=== PATIENT | female | born 1965 | race Two or more races ===

== ENCOUNTER 2019-09-28 11:03 | Emergency (ER) | payer MEDICAID, OTHER ==
[~2019-09-28] VITALS: Ht 157.5 cm; Wt 61.2 kg
[2019-09-28 12:21] VITALS: BP 140/81
== END 2019-09-28 13:13 | disposition home or self-care (01) ==
LOC: ER 11:03
DX: R07.81 Pleurodynia (principal); E11.9 Type 2 diabetes mellitus without complications; E78.5 Hyperlipidemia, unspecified; I10 Essential (primary) hypertension
CPT/HCPCS: 71101

== ENCOUNTER 2024-01-12 17:38 | Emergency (ER) | payer MEDICAID ==
[~2024-01-12] VITALS: Ht 154.9 cm; Wt 54.4 kg
[2024-01-12 18:32] LABS: Urine Bacteria None Seen /hpf (None Seen)
[2024-01-12 18:44] LABS: Urine Blood Negative /uL (Negative); Urine Clarity Clear (Clear); Urine Color Light-Yellow (Yellow); Urine Protein, UAD Negative (Negative); Urine Urobilinogen 2 mg/dL (Negative); Urine WBC 9 /hpf (0 - 5); Urine pH 5.5 (5.0-9.0)
[2024-01-12 18:50] VITALS: BP 102/62; PULSE 105; RESP 18; TEMP 97.2; O2SAT 97
[2024-01-12] MEDS ORDERED: CIPR500T4 PO (19:39)
[2024-01-12] MEDS: cefTRIAXone SOD 1,000 MG VL IM ONE (19:45)
[2024-01-12] MEDS: KETOROLAC TROMETH 60MG/2ML VIAL IM ONE (19:46)
[2024-01-12] MEDS: LIDOCAINE HCL (LOCAL ANESTH.) 0.5 % 50ML MDV IJ ONE (19:51)
== END 2024-01-12 20:17 | disposition home or self-care (01) ==
LOC: ER 17:38
DX: N39.0 Urinary tract infection, site not specified (principal); E11.9 Type 2 diabetes mellitus without complications; I10 Essential (primary) hypertension
CPT/HCPCS: 81001; 82962; 87086; 96372; 99284; J0696; J1885

== ENCOUNTER 2024-05-25 18:58 | Emergency (ER) | payer MEDICAID ==
[~2024-05-25] VITALS: Ht 157.5 cm; Wt 57.3 kg
[~2024-05-25 18:58] MED LIST: CIPR500T4 PO
--- NOTE | 2024-05-25 19:38 | ED.PDOC ---
General HPI Comments HPI: Poor Historian. 58 y.o female presents to the ED for a chief complaint of abdominal pain associated with urinary frequency that started yesterday. Patient reports pain is non radiating, describes as a burning sensation and is constant. Patient reports recent UTI diagnose about one week ago, was placed on Macrobid and is currently taking medication. Patient reports going to [facility] 2[facility]3 days ago for similar abdominal pain and nausea and was told to continue Macrobid and was prescribed Pyridium medication. Patient states having three pills left on her Macrobid. Patient denies any other symptoms or pain at this time. Reoccurring UTI's with similar abdominal pain in the past. She denies any nausea, vomiting, diarrhea, hematuria, fever or chills today. VITALS: Temp: 98.3 F BP: 101/63 HR: 98 RR: 18 SPO2: 96% RA Past medical history: HTN, DM, hyperlipidemia, chronic back pain with multiple freactures overtime- follows up with pain management and receives Tylenol codeine 3 alongside physical therapy Past surgical history: Right Nephrectomy REVIEW OF SYSTEMS: CONSTITUTIONAL: Denies acute: fever, diaphoresis, chills, generalized weakness. HEAD: Denies acute: headache, photophobia Eyes: Denies acute: Double vision, vision loss, eye pain, eye discharge. EARS: Denies acute: tinnitus, hearing loss, ear discharge, ear pain, THROAT: Denies acute: sore throat, swelling, difficulty swallowing , pain with swallowing, change in voice. NECK: Denies acute: neck pain, neck swelling, stiff neck. HEART: Denies acute : chest pain, palpitations, LUNGS: Denies acute: SOB, wheezing, cough, hemoptysis ABDOMEN: Denies acute: Vomiting, diarrhea, melena , hematemesis, hematochezia SKIN: Denies acute: rash, redness, lesions, itchiness. EXTREMITIES: Denies acute: calf pain, numbness, tingling, weakness, denies pain in extremity. Denies acute: Low back pain. Neuro: Denies acute: focal neurological deficit, motor or sensory focal neurological deficit, tremors, seizure like activity, confusion, dizziness, change in mental status, loss of bowel or bladder function, cauda equina like symptoms. : Denies acute: dysuria, hematuria, flank pain, PSYCH: Denies acute: hallucination, suicidal ideation, homicidal ideation. FEMALE: Denies acute: abnormal vaginal bleeding, foul odor, unusual discharge. PHYSICAL EXAM: General: no acute distress, awake and alert. Head: normocephalic, atraumatic. Neck: supple, trachea is midline, no swelling. Throat: Normal phonation. Eyes:, no erythema, no purulent discharge, no proptosis, no icterus. Heart: regular rate, regular rhythm, no significant murmur appreciated. Lungs: no apparent respiratory distress, Able to speak in full sentences. No wheezing, no rhonchi, no crackles. No stridors Clear to auscultation bilaterally. Abdomen: non tender to palpation, non distended, soft, no guarding, no rebound, + bowel sounds. Neuro: Awake, Alert, oriented to name, self, situation, follows commands GCS=15. Speech is normal. Skin: no petechia, no purpura, no cyanosis, non-pale, not jaundice. Lower extremities: --no - Pitting edema no deformity, no focal swelling, no calf TTP. Makes eye contact. moves all four extremities. Face: no apparent facial droop. Ambulating in the ED independently. ED COURSE: Time Seen by MD: 19:30 Primary Care Provider: LEONIDES Rios notes: Nurses Notes, Allergies Allergies: Coded Allergies: Ciprofloxacin (Verified Allergy, Unknown, 05/25/24) Uncoded Allergies: NOVACAINE (Allergy, Severe, 09/28/19) Home Meds Active Scripts Cephalexin Monohydrate (Cephalexin) 500 Mg Cap, 500 MG PO Q6HR for 7 Days, #28 CAP Prov:MARI CARMONA DO 05/25/24 Ciprofloxacin Hcl (Ciprofloxacin Hcl) 500 Mg Tab, 1 TAB PO BID for 7 Days, #14 TAB Prov:SARI HOWARD 01/12/24 Information Source: Patient Mode of Arrival: Ambulatory Past Medical History PAST MEDICAL HISTORY: DM, High Lipids, HTN, UTI'S Past Medical History (Other): chronic back pain Surgical History (Other): nephrectomy right side MAINTENANCE SUPERVISOR History: No Pertinent MAINTENANCE SUPERVISOR History Family History Family History: Reviewed,noncontributory to illness Social History Smoker: Non-Smoker Alcohol: Denies ETOH Use Drugs: Denies Drug Use Lives In: Home Was a procedure done? Was a procedure done?: No Differential Diagnosis Kidney stone (Female): Musculoskeletal pain, Pancreatitis, Pyelonephritis, Renal failure, Strain, N/A Urinary Problem (Female): Pyelonephritis, UTI, Other (DDX include Diverticulitis, colitis, gastroenteritis, acute abdomen, SBO, enteritis, constipation, volvulus, appendicitis, Gallbladder disease, choledocolithiasis, ascending cholangitis, pancreatitis, intraAbdominal mass/neoplasm, hepatitis, UTI, pylonephritis, kidney stone, aneurysm, dissection, Inflammatory bowel disease, gastroparesis, ischemic bowel, ovarian torsion, ovarian cyst/mass, tubo-ovarian abscess, PID, STD.) X-Ray, Labs, Meds, VS Vital Signs Date Time Temp Pulse Resp B/P (MAP) Pulse Ox O2 Delivery O2 Flow Rate FiO2 05/25/24 22:16 97 17 97 Room Air* 0 21 05/25/24 22:12 98.2 97 16 102/65 (77) 99 98.2 05/25/24 19:45 98.3 98 18 101/63 (76) 96 Lab Test 05/25/24 20:59 05/25/24 20:02 05/25/24 19:53 Range/Units Troponin I High Sensitivity < 3 L < 3 L </=34 ng/L Urine Color Dark-yellow Yellow Urine Clarity Clear Clear Urine pH 5.5 5.0-9.0 Urine Specific [place] 1.008 1.001-1.035 Urine Protein Negative Negative Urine Ketones Negative Negative Urine Blood Trace H Negative /uL Urine Nitrite Negative Negative Urine Bilirubin Negative Negative Urine Urobilinogen Normal Negative mg/dL Urine Leukocyte Esterase 3+ Negative /uL Urine RBC 2 0 - 4 /hpf Urine Microscopic WBC 58 H 0-5 /HPF Urine Squamous Epithelial Cells Few <5 /hpf Urine Bacteria None seen None Seen /hpf Urine Glucose 1+ H Normal mg/dL Urine Opiates Screen Pos NEGATIVE Urine Fentanyl Screen Neg NEGATIVE Urine Barbiturates Screen Neg NEGATIVE Urine Phencyclidine Screen Neg NEGATIVE Urine Amphetamines Screen Neg NEGATIVE Urine Benzodiazepines Screen Neg NEGATIVE Urine Cocaine Screen Neg NEGATIVE Urine Cannabinoids Screen Neg NEGATIVE White Blood Count 6.5 4.4-10.8 10^3/uL Red Blood Count 4.34 4.0-5.20 10^6/uL Hemoglobin 14.0 12.2-16.2 g/dL Hematocrit 40.3 36.0-46.0 % Mean Corpuscular Volume 92.8 80.0-100.0 fL Mean Corpuscular Hemoglobin 32.2 H 28.0-32.0 pg Mean Corpuscular Hemoglobin Concent 34.7 32.0-36.0 g/dL Red Cell Distribution Width 12.8 11.8-14.3 % Platelet Count 187 140-450 10^3/uL Mean Platelet Volume 7.7 6.9-10.8 fL Neutrophils (%) (Auto) 40.3 37.0-80.0 % Lymphocytes (%) (Auto) 50.1 H 10.0-50.0 % Monocytes (%) (Auto) 6.3 0.0-12.0 % Eosinophils (%) (Auto) 2.4 0.0-7.0 % Basophils (%) (Auto) 0.9 0.0-2.0 % Neutrophils # (Auto) 2.6 1.6-8.6 10 ^3/uL Lymphocytes # (Auto) 3.3 0.4-5.4 10 ^3/uL Monocytes # (Auto) 0.4 0-1.3 10 ^3/uL Eosinophils # (Auto) 0.2 0-0.8 10 ^3/uL Basophils # (Auto) 0.1 0-0.2 10 ^3/uL Nucleated Red Blood Cells 0.1 % Sodium Level 135 L 136-145 mmol/L Potassium Level 4.2 3.5-5.1 mmol/L Chloride Level 102 98-107 mmol/L Carbon Dioxide Level 26 20-31 mmol/L Anion Gap 7 5-15 Blood Urea Nitrogen 14 9-23 mg/dL Creatinine 0.98 0.550-1.02 mg/dL Glomerular Filtration Rate Calc 67 >90 mL/min BUN/Creatinine Ratio 14.3 10.0-20.0 Serum Glucose 226 H 74-106 mg/dL Lactic Acid Level 1.1 0.4-2.0 mmol/L Calcium Level 10.3 8.7-10.4 mg/dL Total Bilirubin 0.7 0.2-1.0 mg/dL Aspartate Amino Transferase (AST) 18 13-40 U/L Alanine Aminotransferase (ALT) 22 7-40 U/L Alkaline Phosphatase 103 46-116 U/L Total Protein 7.2 5.7-8.2 g/dL Albumin 4.4 3.2-4.8 g/dL [address] [address] Ph: [phone] DIAGNOSTIC IMAGING Diagnostic Imaging Report : [id number] Signed PATIENT: MARII MOELLERACCT: [id number] UNIT: [id number] : 1965 LOC: ER ROOM / BED: / AGE / SEX: 58 / F ADM STATUS: REG ER SERVICE 22 ORDERING PHYSICIAN: MARI CARMONA DO PROCEDURE(s): ABPL - CT AB PEL WO CON-NO ORAL OR IV REASON: abd pain ORDER NUMBER(s): [id number], ACCESSION NUMBER(s): [id number] CT SCAN ABDOMEN AND PELVIS WITHOUT CONTRAST CLINICAL HISTORY: abd pain TECHNIQUE: Helical axial images are obtained from the lung bases through the pelvis without oral contrast. No intravenous contrast was administered. Coronal and sagittal reformatted images were generated from thin section reconstructions. One or more of the following radiation dose reduction techniques were used for this examination: automated exposure control, adjustment of the mA and/or kV according to patient size, use of iterative reconstruction technique. CTDI: 5.26 mGy DLP: 261.4 mGy-cm COMPARISON: Chest x-ray obtained earlier the same day. FINDINGS: LOWER THORAX: 5 mm nodule in the peripheral right lower lobe. Recommend follow-up as per clinical guidelines. ABDOMEN AND PELVIS: Evaluation of visceral and vascular structures is limited due to lack of contrast administration. As visualized, the unenhanced liver, spleen, pancreas and adrenals appear grossly unremarkable. No sizable, radiopaque cholelithiasis or biliary ductal dilatation appreciated. Right upper quadrant surgical clips are noted right kidney appears to be surgically absent. No left hydroureteronephrosis. Scattered aortoiliac atherosclerotic calcifications. No evidence of abdominal aortic aneurysm. No evidence of small-bowel obstruction. Moderate volume stool throughout the colon and rectum. Correlate for constipation. The appendix is not clearly identified, however, no pericecal inflammatory changes are noted at this time. No free intraperitoneal air or fluid identified. No sizable bladder calculus. T-shaped intrauterine device is noted. No destructive osseous lesions identified. IMPRESSION: No bowel obstruction, free intraperitoneal air/fluid or sizable inflammatory collections identified on this noncontrast examination. Other findings as above. [employer] RECOMMENDATIONS FOR FOLLOW-UP OF SMALL LUNG NODULES DETECTED INCIDENTALLY ON CT Less than or equal to 4 mm LOW-RISK No follow-up needed HIGH-RISK CT at 12 months, If stable, no further follow-up >4 - 6 mm LOW-RISK CT at 12 months, If stable, no further follow-up HIGH-RISK Initial CT at 6-12 months, If stable, repeat CT at 18-24 months >6 - 8 mm LOW-RISK Initial CT at 6-12 months, If stable, repeat CT at 18-24 months HIGH-RISK Initial CT at 3-6 months, If stable, repeat CT at 9-12 months and 24 months > [address] at 3, 9, and 24 months, Consider PET or biopsy LOW RISK = minimal or absent history of smoking or other known risk factors. HIGH RISK = history of smoking or other known risk factors. KNOWN RISK FACTORS: history of lung cancer in first-degree relative; exposure to asbestos, radon, or uranium. NOTE: nonsolid, partially solid, or ground-glass nodules may require longer follow-up to exclude indolent adenocarcinoma NOTE: guidelines do NOT apply to the following groups: - known or suspected cancer outside of the lungs - patients younger than 35 years of age - patients with unexplained fever ATED BY: PEDRO DOUGLAS MD DICTATED DATE/TIME: 05/25/242003 SIGNED BY: PEDRO DOUGLAS MD SIGNED DATE/TIME: 05/25/242003 CC: [place] [id number] Ph: [phone] DIAGNOSTIC IMAGING Diagnostic Imaging Report : [id number] Signed PATIENT: MARII MOELLERACCT: [id number] UNIT: [id number] : 1965 LOC: ER ROOM / BED: / AGE / SEX: 58 / F ADM STATUS: REG ER SERVICE 22 ORDERING PHYSICIAN: MARI CARMONA DO PROCEDURE(s): CXRP - CHEST PORTABLE REASON: abd pain ORDER NUMBER(s): [id number], ACCESSION NUMBER(s): [id number] CHEST RADIOGRAPH Indication: abd pain Technique: Single frontal view of the chest was obtained COMPARISON: None FINDINGS: Lines and Tubes: None Lungs: Clear Pleura: No effusion. No pneumothorax. Cardiomediastinal contours: Unremarkable Bones: Mild thoracolumbar dextroscoliosis IMPRESSION: No abnormality demonstrated. ATED BY: MAIKOL BABIN MD DICTATED DATE/TIME: 05/25/241952 SIGNED BY: MAIKOL BABIN MD SIGNED DATE/TIME: 05/25/241952 CC: Time of 1ST Reevaluation: 19:33 Reevaluation 1ST: Unchanged Patient Education/Counseling: Diagnosis, Treatment Family Education/Counseling: No Family Present Comments Patient presented with the above HPI.---abdominal pain and urinary symptoms- --workup was initiated. patient was found with the above mentioned diagnosis. the following medications were ordered: please refer to order lists of meds and tests obtained by myself Dr. Carmona. Patient ED course and VS have been stabilized. Patient has been reassessed in the ED and remained in a stable condition. Pertinent incidental findings were discussed with the patient and/or family. Patient/family voices understanding and is agreeable with plan. Patient has been observed in the ED adequate length of time to insure improvement/stability. Escalation of care considered: Consideration of escalation to observation or admission Patient was DISCHARGED home in a stable condition. All the reports of any imaging studies that were ordered by myself were reviewed by myself. Departure 1 Departure Time of Disposition: 21:30 Impression: Primary Impression: Abdominal pain Additional Impressions: Pulmonary nodule UTI (urinary tract infection) Disposition: HOME / SELF CARE / HOMELESS Condition: Stable Additional Instructions: Additional discharge instructions: You MUST follow-up with your primary care/family doctor in 1 to 2 days. If you are unable to see your primary care/family doctor, please return to our emergency room for re-assessment and re-evaluation in 1 to 2 days. Return to the emergency room here in our facility or to the nearest ER [facility] if your symptoms change or worsen. CONSULTATIONS: you MUST Follow-up for consultation as soon as possible with: [facility] u[facility] in 1-2 days. Please call for appointment You MUST call the consultants office yourself to make an appointment. You may need to arrange that through your insurance and/or your primary/family doctor. If you are unable to see the independent crop consultant in 1 to 2 days, you must return to our emergency room (or any other ER of your choice) for re-assessment and re- evaluation. Adequate fluid hydration. Below is a copy of your radiological report for follow up: [address] [address] Ph: [phone] DIAGNOSTIC IMAGING Diagnostic Imaging Report : [id number] Signed PATIENT: MARII MOELLER ACCT: [id number] UNIT: [id number] : 1965 LOC: ER ROOM / BED: / AGE / SEX: 58 / F ADM STATUS: REG ER SERVICE 22 ORDERING PHYSICIAN: MARI CARMONA DO PROCEDURE(s): ABPL - CT AB PEL WO CON-NO ORAL OR IV REASON: abd pain ORDER NUMBER(s): [id number], ACCESSION NUMBER(s): [id number] CT SCAN ABDOMEN AND PELVIS WITHOUT CONTRAST CLINICAL HISTORY: abd pain TECHNIQUE: Helical axial images are obtained from the lung bases through the pelvis without oral contrast. No intravenous contrast was administered. Coronal and sagittal reformatted images were generated from thin section reconstructions. One or more of the following radiation dose reduction techniques were used for this examination: automated exposure control, adjustment of the mA and/or kV according to patient size, use of iterative reconstruction technique. CTDI: 5.26 mGy DLP: 261.4 mGy-cm COMPARISON: Chest x-ray obtained earlier the same day. FINDINGS: LOWER THORAX: 5 mm nodule in the peripheral right lower lobe. Recommend follow-up as per clinical guidelines. ABDOMEN AND PELVIS: Evaluation of visceral and vascular structures is limited due to lack of contrast administration. As visualized, the unenhanced liver, spleen, pancreas and adrenals appear grossly unremarkable. No sizable, radiopaque cholelithiasis or biliary ductal dilatation appreciated. Right upper quadrant surgical clips are noted right kidney appears to be surgically absent. No left hydroureteronephrosis. Scattered aortoiliac atherosclerotic calcifications. No evidence of abdominal aortic aneurysm. No evidence of small-bowel obstruction. Moderate volume stool throughout the colon and rectum. Correlate for constipation. The appendix is not clearly identi fied, however, no pericecal inflammatory changes are noted at this time. No free intraperitoneal air or fluid identified. No sizable bladder calculus. T-shaped intrauterine device is noted. No destructive osseous lesions identified. IMPRESSION: No bowel obstruction, free intraperitoneal air/fluid or sizable inflammatory collections identified on this noncontrast examination. Other findings as above. [employer] RECOMMENDATIONS FOR FOLLOW-UP OF SMALL LUNG NODULES DETECTED INCIDENTALLY ON CT Less than or equal to 4 mm LOW-RISK No follow-up needed HIGH-RISK CT at 12 months, If stable, no further follow-up >4 - 6 mm LOW-RISK CT at 12 months, If stable, no further follow-up HIGH-RISK Initial CT at 6-12 months, If stable, repeat CT at 18-24 months >6 - 8 mm LOW-RISK Initial CT at 6-12 months, If stable, repeat CT at 18-24 months HIGH-RISK Initial CT at 3-6 months, If stable, repeat CT at 9-12 months and 24 months > [address] at 3, 9, and 24 months, Consider PET or biopsy LOW RISK = minimal or absent history of smoking or other known risk factors. HIGH RISK = history of smoking or other known risk factors. KNOWN RISK FACTORS: history of lung cancer in first-degree relative; exposure to asbestos, radon, or uranium. NOTE: nonsolid, partially solid, or ground-glass nodules may require longer follow-up to exclude indolent adenocarcinoma NOTE: guidelines do NOT apply to the following groups: - known or suspected cancer outside of the lungs - patients younger than 35 years of age - patients with unexplained fever ATED BY: PEDRO DOUGLAS MD DICTATED DATE/TIME: 05/25/242003 SIGNED BY: PEDRO DOUGLAS MD SIGNED DATE/TIME: 05/25/242003 CC: e-Prescriptions Cephalexin Monohydrate (Cephalexin) 500 Mg Cap 500 MG PO Q6HR for 7 Days, #28 CAP Prov: MARI CARMONA DO 05/25/24 Discharged With: Self Critical Care Note Critical Care Time?: No I personally scribed for MARI CARMONA DO ([email or web address]) on 05/25/24 at 19:38. Electronically submitted by Elida Enriquez ([facility]). I personally scribed for MARI CARMONA DO ([email or web address]) on 05/25/24 at 21:42. Electronically submitted by Elida Enriquez ([facility]). MARI CARMONA DO May 25, 2024 19:38
--- NOTE | 2024-05-25 19:56 | DVH ---
CHEST RADIOGRAPH Indication: abd pain Technique: Single frontal view of the chest was obtained COMPARISON: None FINDINGS: Lines and Tubes: None Lungs: Clear Pleura: No effusion. No pneumothorax. Cardiomediastinal contours: Unremarkable Bones: Mild thoracolumbar dextroscoliosis IMPRESSION: No abnormality demonstrated.
[2024-05-25 20:03] LABS: Urine Bacteria None Seen /hpf (None Seen)
--- NOTE | 2024-05-25 20:07 | DVH ---
CT SCAN ABDOMEN AND PELVIS WITHOUT CONTRAST CLINICAL HISTORY: abd pain TECHNIQUE: Helical axial images are obtained from the lung bases through the pelvis without oral cont rast. No intravenous contrast was administered. Coronal and sagittal reformatted images were generate d from thin section reconstructions. One or more of the following radiation dose reduction techniques were used for this examination: automated exposure control, adjustment of the mA and/or kV according to patient size, use of iterative reconstruction technique. CTDI: 5.26 mGy DLP: 261.4 mGy-cm COMPARISON: Chest x-ray obtained earlier the same day. FINDINGS: LOWER THORAX: 5 mm nodule in the peripheral right lower lobe. Recommend follow-up as per clinical guidelines. ABDOMEN AND PELVIS: Evaluation of visceral and vascular structures is limited due to lack of contrast administration. As visualized, the unenhanced liver, spleen, pancreas and adrenals appear grossly unremarkable. No si zable, radiopaque cholelithiasis or biliary ductal dilatation appreciated. Right upper quadrant surgical clips are noted right kidney appears to be surgically absent. No left h ydroureteronephrosis. Scattered aortoiliac atherosclerotic calcifications. No evidence of abdominal aortic aneurysm. No evidence of small-bowel obstruction. Moderate volume stool throughout the colon and rectum. Correl ate for constipation. The appendix is not clearly identified, however, no pericecal inflammatory sanders ges are noted at this time. No free intraperitoneal air or fluid identified. No sizable bladder calculus. T-shaped intrauterine device is noted. No destructive osseous lesions identified. IMPRESSION: No bowel obstruction, free intraperitoneal air/fluid or sizable inflammatory collections identified o n this noncontrast examination. Other findings as above. [employer] RECOMMENDATIONS FOR FOLLOW-UP OF SMALL LUNG NODULES DETECTED INCIDENTALLY ON CT Less than or equal to 4 mm LOW-RISK No follow-up needed HIGH-RISK CT at 12 months, If stable, no further follow-up >4 - 6 mm LOW-RISK CT at 12 months, If stable, no further follow-up HIGH-RISK Initial CT at 6-12 months, If stable, repeat CT at 18-24 months >6 - 8 mm LOW-RISK Initial CT at 6-12 months, If stable, repeat CT at 18-24 months HIGH-RISK Initial CT at 3-6 months, If stable, repeat CT at 9-12 months and 24 months > [address] at 3, 9, and 24 months, Consider PET or biopsy LOW RISK = minimal or absent history of smoking or other known risk factors. HIGH RISK = history of smoking or other known risk factors. KNOWN RISK FACTORS: history of lung cancer in first-degree relative; exposure to asbestos, radon, or uranium. NOTE: nonsolid, partially solid, or ground-glass nodules may require longer follow-up to exclude indo lent adenocarcinoma NOTE: guidelines do NOT apply to the following groups: - known or suspected cancer outside of the lungs - patients younger than 35 years of age - patients with unexplained fever
[2024-05-25 20:19] LABS: Basophils # (auto) 0.1 10 ^3/uL (0-0.2); Basophils % (auto) 0.9 % (0.0-2.0); Eosinophils # (auto) 0.2 10 ^3/uL (0-0.8); Eosinophils % (auto) 2.4 % (0.0-7.0); Hematocrit 40.3 % (36.0-46.0); Lymphocytes # (auto) 3.3 10 ^3/uL (0.4-5.4); Lymphocytes % (auto) 50.1 % (10.0-50.0); Mean Corpuscular Hemoglobin 32.2 pg (28.0-32.0); Mean Corpuscular Hgb Conc. 34.7 g/dL (32.0-36.0); Mean Corpuscular Volume 92.8 fL (80.0-100.0); Monocytes # (auto) 0.4 10 ^3/uL (0-1.3); Monocytes % (auto) 6.3 % (0.0-12.0); Neutrophils # (auto) 2.6 10 ^3/uL (1.6-8.6); Neutrophils % (auto) 40.3 % (37.0-80.0); Nucleated Red Blood Cells % 0.1 %; Platelet Count (auto) 187 10^3/uL (140-450); Red Blood Cells 4.34 10^6/uL (4.0-5.20); Red Cell Distribution Width 12.8 % (11.8-14.3); White Blood Cell 6.5 10^3/uL (4.4-10.8)
[2024-05-25 20:36] LABS: Urine Blood TRACE /uL (Negative); Urine Clarity Clear (Clear); Urine Color Dark-Yellow (Yellow); Urine Protein, UAD Negative (Negative); Urine Specific Gravity 1.008 (1.001-1.035); Urine Squamous Epithelial Cell FEW /hpf (<5); Urine Urobilinogen Normal (Negative); Urine WBC 58 /HPF (0-5); Urine pH 5.5 (5.0-9.0)
[2024-05-25 20:54] LABS: Amphetamine Screen, Urine Neg (NEGATIVE); Barbiturate Scree,Urine Neg (NEGATIVE); Benzodiazephine Screen, Urine Neg (NEGATIVE); Cannabinoid Screen, Urine Neg (NEGATIVE); Cocaine Screen, Urine Neg (NEGATIVE); Opiate Scree,Urine Pos (NEGATIVE); Phencyclidine Screen, Urine Neg (NEGATIVE)
[2024-05-25 20:59] LABS: Alanine Aminotransferase 22 U/L (7-40); Albumin 4.4 g/dL (3.2-4.8); Alkaline Phosphatase 103 U/L (46-116); Anion Gap 7 (5-15); Aspartate Aminotransferase 18 U/L (13-40); BUN/Creatinine Ratio 14.3 (10.0-20.0); Bilirubin, Total 0.7 mg/dL (0.2-1.0); Blood Urea Nitrogen 14 mg/dL (9-23); Calcium 10.3 mg/dL (8.7-10.4); Carbon Dioxide 26 mmol/L (20-31); Chloride 102 mmol/L (98-107); Potassium 4.2 mmol/L (3.5-5.1); Total Protein 7.2 g/dL (5.7-8.2)
[2024-05-25 21:03] LABS: Glucose 226 mg/dL (74-106); Sodium 135 mmol/L (136-145)
[2024-05-25] MEDS ORDERED: CEPH500C PO (21:32)
[2024-05-25 22:12] VITALS: BP 102/65; TEMP 98.2
[2024-05-25 22:16] VITALS: PULSE 97; RESP 17; O2SAT 97
== END 2024-05-25 22:17 | disposition home or self-care (01) ==
LOC: ER 18:58
DX: N39.0 Urinary tract infection, site not specified (principal); R91.1 Solitary pulmonary nodule; R10.9 Unspecified abdominal pain; I10 Essential (primary) hypertension; E11.9 Type 2 diabetes mellitus without complications; E78.5 Hyperlipidemia, unspecified; Z90.89 Acquired absence of other organs; Z79.899 Other long term (current) drug therapy
CPT/HCPCS: 36415; 71045; 74176; 80053; 80307; 81001; 83605; 84484; 85025

== ENCOUNTER 2024-07-16 18:13 | Emergency (ER) | payer MEDICAID ==
[~2024-07-16] VITALS: Ht 154.9 cm; Wt 58.9 kg
[~2024-07-16 18:13] MED LIST changes: +CEPH500C PO
[2024-07-16 19:35] LABS: Urine Bacteria None Seen /hpf (None Seen)
[2024-07-16] MEDS ORDERED: BACDST PO (19:38)
[2024-07-16] MEDS ORDERED: ACET500T58 PO (19:38)
[2024-07-16 19:39] VITALS: BP 92/60; TEMP 98
--- NOTE | 2024-07-16 19:39 | ED.PDOC ---
General HPI Comments 58-year-old female presents to ER with urinary complaint x3 days. Patient reports that he has been experiencing increase in urination and burning with urination x three days. States that she has had similar symptoms in the past related to a urinary tract infection. She reports 8/10 burning pain with urination, denying any other current pain. Patient presents to ER ambulatory on arrival, with steady gait, in no distress. Denies fever, body aches, chills, night sweats, nausea/vomiting, abdominal/pelvic pain, back/flank pain, further changes in urination or any further symptoms/complaints Chief Complaint: Urinary Time Seen by MD: 18:26 Primary Care Provider: MANUELITO Rios notes: Nurses Notes, Medications, Allergies Allergies: Coded Allergies: Ciprofloxacin (Verified Allergy, Unknown, 05/25/24) Uncoded Allergies: NOVACAINE (Allergy, Severe, 09/28/19) Home Meds Active Scripts Acetaminophen (Acetaminophen) 500 Mg Tab, 500 MG PO Q4HPRN, #30 TAB 0 Refills Prov:SOBEIDA ROTHMAN 07/16/24 Sulfamethoxazole W/Trimethopri (Bactrim Ds Tablet) 1 Tab Tb, 1 TAB PO BID for 7 Days, #14 TAB 0 Refills Prov:SOBEIDA ROTHMAN 07/16/24 Cephalexin Monohydrate (Cephalexin) 500 Mg Cap, 500 MG PO Q6HR for 7 Days, #28 CAP Prov:MARI CARMONA DO 05/25/24 Ciprofloxacin Hcl (Ciprofloxacin Hcl) 500 Mg Tab, 1 TAB PO BID for 7 Days, #14 TAB Prov:SARI HOWARD 01/12/24 Information Source: Patient Mode of Arrival: Ambulatory Past Medical History PAST MEDICAL HISTORY: DM, High Lipids, HTN, UTI'S VEHICLE REFINISHER History: No Pertinent VEHICLE REFINISHER History Family History Family History: Unknown Social History Smoker: Non-Smoker Alcohol: Denies ETOH Use Drugs: Denies Drug Use Lives In: Home Constitutional: denies: chills, diaphoresis, fatigue, fever, malaise, sweats, weakness, others EENTM: denies: blurred vision, double vision, ear bleeding, ear discharge, ear drainage, ear pain, ear ringing, eye pain, eye redness, hearing loss, mouth pain, mouth swelling, nasal discharge, nose bleeding, nose congestion, nose pain, photophobia, tearing, throat pain, throat swelling, voice changes, others Respiratory: denies: cough, hemoptysis, orthopnea, SOB at rest, shortness of breath, SOB with excertion, stridor, wheezing, others Cardiovascular: denies: chest pain, dizzy spells, diaphoresis, Dyspnea on exertion, edema, irregular heart beat, left arm pain, lightheadedness, palpitations, PND, syncope, others Gastrointestinal: denies: abdomen distended, abdominal pain, blood streaked bowels, constipated, diarrhea, dysphagia, difficulty swallowing, hematemesis, melena, nausea, poor appetite, poor fluid intake, rectal bleeding, rectal pain, vomiting, others Genitourinary: reports: others ( STATED IN HPI) Neurological: denies: dizziness, fainting, headache, left sided numbness, left sided weakness, numbness, paresthesia, pre-existing deficit, right sided numbness, right sided weakness, seizure, speech problems, tingling, tremors, weakness, others Musculoskeletal: denies: back pain, gout, joint pain, joint swelling, muscle pain, muscle stiffness, neck pain, others Integumetry: denies: bruises, change in color, change in hair/nails, dryness, laceration, lesions, lumps, rash, wounds, others Allergic/Immunocompromised: denies: Difficulty Healing, Frequent Infections, Hives, Itching, others Hematologic/Lymphatic: denies: anemia, blood clots, easy bleeding, easy bruising, swollen glands, others Endocrine: denies: excessive hunger, excessive sweating, excessive thirst, excessive urination, flushing, intolerance to cold, intolerance to heat, unexplained weight gain, unexplained weight loss, others Psychiatric: denies: anxiety, bipolar disorder, depression, hopeless, panic disorder, schizophrenia, sleepless, suicidal, others Physical Exam General Appearance: No Apparent Distress HEENT: PERRL/EOMI Neck: Full Range of Motion, Non-Tender, Normal Respiratory: Chest Non-Tender, Lungs Clear, No Accessory Muscle Use, No Respiratory Distress, Normal Breath Sounds Cardiovascular: No Murmur, No Gallop, Regular Rate/Rhythm Breast Exam: Deferred Gastrointestinal: Non Tender, No Pulsatile Mass, Soft Genitalia: Deferred Pelvic: Deferred Rectal: Deferred Extremities: Normal capillary refill, Normal range of motion Musculoskeletal : Extremity Location: Back (NO TTP TO BILATERAL FLANKS OR CVA TENDERNESS NOTED BILATERALLY) Neurologic: Alert, No Motor Deficits, Normal Affect, Normal Mood, No Sensory Deficits Cerebellar Function: Normal Reflexes: Normal Skin: Dry, Normal Color, Warm Peripheral Pulses: 2+ Radial (R), 2+ Radial (L), 2+ Brachial (R), 2+ Brachial (L) Lymphatic: No Adenopathy Was a procedure done? Was a procedure done?: No Sedation Sedation?: No Differential Diagnosis Kidney stone (Female): N/A Urinary Problem (Female): Pyelonephritis, Urinary retention, Urolithiasis X-Ray, Labs, Meds, VS Vital Signs Date Time Temp Pulse Resp B/P (MAP) Pulse Ox O2 Delivery O2 Flow Rate FiO2 07/16/24 20:02 60 16 98 Room Air 07/16/24 19:39 98.0 90 16 92/60 (71) 98 98.0 07/16/24 18:40 98.0 90 16 103/47 (65) 96 98.0 Lab Test 07/16/24 18:54 Range/Units Urine Color Light-yellow Yellow Urine Clarity Clear Clear Urine pH 5.5 5.0-9.0 Urine Specific [place] 1.019 1.001-1.035 Urine Protein Negative Negative Urine Ketones Negative Negative Urine Blood Trace H Negative /uL Urine Nitrite Negative Negative Urine Bilirubin Negative Negative Urine Urobilinogen Normal Negative mg/dL Urine Leukocyte Esterase 3+ Negative /uL Urine RBC 3 0 - 4 /hpf Urine Microscopic WBC 69 H 0-5 /HPF Urine Squamous Epithelial Cells Few <5 /hpf Urine Bacteria None seen None Seen /hpf Urine Glucose 4+ H Normal mg/dL Current Medications Medications (Trade) Dose Ordered Sig/Monty Route Start Time Stop Time Status Last Admin Ceftriaxone Sodium (Rocephin) 1,000 mg ONCE ONCE IM 07/16/24 19:45 07/16/24 19:46 DC 07/16/24 20:20 Lidocaine HCl (Xylocaine 1%) 2.1 ml ONCE ONCE IJ 07/16/24 20:15 07/16/24 20:17 DC 07/16/24 20:20 URINALYSIS REVIEWED-URINE LEUKOCYTE ESTERASE 3+, URINE BLOOD TRACE, URINE NITRITES NEGATIVE ROCEPHIN 1 G IM ORDERED PATIENT IN NO DISTRESS DURING ER VISIT/PRIOR TO DISCHARGE ADVISED TO DRINK PLENTY OF FLUIDS ADVISED TO FOLLOW UP WITH PCP IN 1-2 DAYS PATIENT VERBALIZED UNDERSTANDING AND AGREEABLE WITH CURRENT PLAN OF CARE ADVISED TO RETURN TO ER IMMEDIATELY IF SYMPTOMS WORSEN Time of 1ST Reevaluation: 19:12 Reevaluation 1ST: N/A Patient Education/Counseling: Diagnosis, Treatment, Prognosis, Need For Follow Up Family Education/Counseling: No Family Present Departure 1 Departure Time of Disposition: 20:04 Impression: Primary Impression: UTI (urinary tract infection) Qualified Codes: N30.01 - Acute cystitis with hematuria Disposition: HOME / SELF CARE / HOMELESS Condition: Stable e-Prescriptions Nitrofurantoin Monohydrate Mac (Macrobid) 100 Mg Cap 100 MG PO BID for 7 Days, #14 CAP 0 Refills Prov: SOBEIDA ROTHMAN 07/16/24 Acetaminophen (Acetaminophen) 500 Mg Tab 500 MG PO Q4HPRN, #30 TAB 0 Refills Prov: SOBEIDA ROTHMAN 07/16/24 Discharged With: Self Critical Care Note Critical Care Time?: No Stability Stability form required: No Heart Score Heart Score: Heart Score Response (Comments) Value History N/A 0 EKG N/A 0 Age N/A 0 Risk Factors N/A 0 Troponin N/A 0 Total 0 SOBEIDA ROTHMAN July 16, 2024 19:39
[2024-07-16 19:54] LABS: Urine Blood TRACE /uL (Negative); Urine Clarity Clear (Clear); Urine Color Light-Yellow (Yellow); Urine Protein, UAD Negative (Negative); Urine Specific Gravity 1.019 (1.001-1.035); Urine Squamous Epithelial Cell FEW /hpf (<5); Urine Urobilinogen Normal (Negative); Urine WBC 69 /HPF (0-5); Urine pH 5.5 (5.0-9.0)
[2024-07-16 20:02] VITALS: PULSE 60; RESP 16; O2SAT 98
[2024-07-16] MEDS: cefTRIAXone SOD 1,000 MG VL IM ONE (20:20)
[2024-07-16] MEDS: LIDOCAINE 1% HCL (LOCAL ANESTH.) INJ 20ML MDV IJ ONE (20:20)
[2024-07-16] MEDS ORDERED: NITR-87 PO (20:35)
== END 2024-07-16 20:38 | disposition home or self-care (01) ==
LOC: ER 18:17
DX: N39.0 Urinary tract infection, site not specified (principal); I10 Essential (primary) hypertension; E11.9 Type 2 diabetes mellitus without complications; Z88.1 Allergy status to other antibiotic agents
CPT/HCPCS: 81001; 96372; 99283; J0696; J2003

== ENCOUNTER 2024-07-24 10:20 | Emergency (ER) | payer MEDICAID ==
[~2024-07-24] VITALS: Ht 154.9 cm; Wt 58.0 kg
[~2024-07-24 10:20] MED LIST changes: +ACET500T58 PO; +NITR-87 PO
[2024-07-24 11:30] VITALS: PULSE 98; RESP 16; O2SAT 98
--- NOTE | 2024-07-24 11:36 | ED.PDOC ---
History of Present Illness HPI Comments 58F presents to the Er w/ prior MHx of DM, High Lipids, HTN, UTI's; Wilms Tumor Removal, Recent Biopsy, and Tubal Ligation and the c/c of UTI. Pt reports that she was in the ER 1.5 weeks ago and was given a shot/medication for the UTI, but the pt stated that she finished the medication and that she still has lower ABD pressure like pain w/ N/, fever at night and frequency. Social Hx of tobacco use, but denies alcohol and substance use. Family Hx of DM. Denies chills, fever, /V/D, SOB, CP or other associated symptom's, modifiers, or recent injuries or sick contact at this time. Chief Complaint: Urinary Time Seen by MD: 11:20 Primary Care Provider: UNKNOWN Reviewed Notes: Nurses Notes, Medications, Allergies Allergies: Coded Allergies: Ciprofloxacin (Verified Allergy, Unknown, 05/25/24) Uncoded Allergies: NOVACAINE (Allergy, Severe, 09/28/19) Home Meds Active Scripts Levofloxacin Hemihydrate (LEVAQUIN 500 MG) 500 Mg Tab, 500 MG PO DAILY for 7 Days, #7 TAB Prov:NIKITA OCHOA MD 07/24/24 Nitrofurantoin Monohydrate Mac (Macrobid) 100 Mg Cap, 100 MG PO BID for 7 Days, #14 CAP 0 Refills Prov:SOBEIDA ROTHMAN 07/16/24 Acetaminophen (Acetaminophen) 500 Mg Tab, 500 MG PO Q4HPRN, #30 TAB 0 Refills Prov:SOBEIDA ROTHMAN 07/16/24 Cephalexin Monohydrate (Cephalexin) 500 Mg Cap, 500 MG PO Q6HR for 7 Days, #28 CAP Prov:MARI CRAMONA DO 05/25/24 Ciprofloxacin Hcl (Ciprofloxacin Hcl) 500 Mg Tab, 1 TAB PO BID for 7 Days, #14 TAB Prov:SARI HOWARD 01/12/24 Information Source: Patient Mode of Arrival: Ambulatory Severity: Moderate Timing: Weeks Duration: Since onset Prehospital treatment: None Past Medical History PAST MEDICAL HISTORY: DM, High Lipids, HTN, UTI'S Surgical History: Tubal Ligation Surgical History (Other): Wilms tumor Removal, recent Biopsy [facility] [facility] MAGISTRATE History: No Pertinent [facility] MAGISTRATE History Family History Family History: Reviewed,noncontributory to illness, Family hx of DM Social History Smoker: Non-Smoker Alcohol: Denies ETOH Use Drugs: Denies Drug Use Lives In: Home Constitutional: reports: fever; denies: chills, diaphoresis, fatigue, malaise, sweats, weakness, others EENTM: denies: blurred vision, double vision, ear bleeding, ear discharge, ear drainage, ear pain, ear ringing, eye pain, eye redness, hearing loss, mouth pain, mouth swelling, nasal discharge, nose bleeding, nose congestion, nose pain, photophobia, tearing, throat pain, throat swelling, voice changes, others Respiratory: denies: cough, hemoptysis, orthopnea, SOB at rest, shortness of breath, SOB with excertion, stridor, wheezing, others Cardiovascular: denies: chest pain, dizzy spells, diaphoresis, Dyspnea on exertion, edema, irregular heart beat, left arm pain, lightheadedness, palpitations, PND, syncope, others Gastrointestinal: reports: abdominal pain; denies: abdomen distended, blood streaked bowels, constipated, diarrhea, dysphagia, difficulty swallowing, hematemesis, melena, nausea, poor appetite, poor fluid intake, rectal bleeding, rectal pain, vomiting, others Genitourinary: reports: frequency; denies: abnormal vagina bleeding, burning, dyspareunia, dysuria, flank pain, hematuria, incontinence, pain, , vagina discharge, urgency, others Neurological: denies: dizziness, fainting, headache, left sided numbness, left sided weakness, numbness, paresthesia, pre-existing deficit, right sided numbness, right sided weakness, seizure, speech problems, tingling, tremors, weakness, others Musculoskeletal: denies: back pain, gout, joint pain, joint swelling, muscle pain, muscle stiffness, neck pain, others Integumetry: denies: bruises, change in color, change in hair/nails, dryness, laceration, lesions, lumps, rash, wounds, others Allergic/Immunocompromised: denies: Difficulty Healing, Frequent Infections, Hives, Itching, others Hematologic/Lymphatic: denies: anemia, blood clots, easy bleeding, easy bruising, swollen glands, others Endocrine: denies: excessive hunger, excessive sweating, excessive thirst, excessive urination, flushing, intolerance to cold, intolerance to heat, unexplained weight gain, unexplained weight loss, others Psychiatric: denies: anxiety, bipolar disorder, depression, hopeless, panic disorder, schizophrenia, sleepless, suicidal, others All Other Systems: Reviewed and Negative Physical Exam General Appearance: No Apparent Distress HEENT: Normal ENT Inspection, Pharynx Normal, TMs Normal Neck: Full Range of Motion, Non-Tender, Normal, Normal Inspection Respiratory: Chest Non-Tender, Lungs Clear, No Accessory Muscle Use, No Respiratory Distress, Normal Breath Sounds Cardiovascular: No Edema, No JVD, No Murmur, No Gallop, Normal Peripheral Pulses, Regular Rate/Rhythm Breast Exam: Deferred Gastrointestinal: No Organomegaly, No Pulsatile Mass, Normal Bowel Sounds, Soft, Suprapubic, Tenderness Genitalia: Deferred Pelvic: Deferred Rectal: Deferred Extremities: No calf tenderness, Normal capillary refill, Normal inspection, Normal range of motion, Non-tender, No pedal edema Musculoskeletal : Apperance: Normal Neurologic: Alert, world designer II-XII nml as Tested, No Motor Deficits, Normal Affect, Normal Mood, No Sensory Deficits Cerebellar Function: Normal Reflexes: Normal Skin: Dry, Normal Color, Warm Lymphatic: No Adenopathy Was a procedure done? Was a procedure done?: No Differential Dx Considerations may include: UTI, generalized weakness, dehydration X-Ray, Labs, Meds, VS Vital Signs Date Time Temp Pulse Resp B/P (MAP) Pulse Ox O2 Delivery O2 Flow Rate FiO2 07/24/24 11:30 98 16 98 Room Air* 0 21 07/24/24 11:24 98 16 98 Room Air 07/24/24 11:24 98.7 98 16 127/51 (76) 98 98.7 07/24/24 11:00 97.7 100 16 113/68 (83) 98 97.7 Lab Test 07/24/24 12:06 07/24/24 11:39 Range/Units Urine Color Light-yellow Yellow Urine Clarity Clear Clear Urine pH 5.0 5.0-9.0 Urine Specific [place] 1.007 1.001-1.035 Urine Protein Negative Negative Urine Ketones Negative Negative Urine Blood Negative Negative /uL Urine Nitrite Negative Negative Urine Bilirubin Negative Negative Urine Urobilinogen Normal Negative mg/dL Urine Leukocyte Esterase 3+ Negative /uL Urine RBC 4 0 - 4 /hpf Urine Microscopic WBC 15 H 0-5 /HPF Urine Squamous Epithelial Cells Few <5 /hpf Urine Bacteria Few H None Seen /hpf Urine Glucose 2+ H Normal mg/dL White Blood Count 7.4 4.4-10.8 10^3/uL Red Blood Count 4.47 4.0-5.20 10^6/uL Hemoglobin 14.2 12.2-16.2 g/dL Hematocrit 41.0 36.0-46.0 % Mean Corpuscular Volume 91.7 80.0-100.0 fL Mean Corpuscular Hemoglobin 31.8 28.0-32.0 pg Mean Corpuscular Hemoglobin Concent 34.7 32.0-36.0 g/dL Red Cell Distribution Width 13.1 11.8-14.3 % Platelet Count 182 140-450 10^3/uL Mean Platelet Volume 7.6 6.9-10.8 fL Neutrophils (%) (Auto) 49.2 37.0-80.0 % Lymphocytes (%) (Auto) 43.2 10.0-50.0 % Monocytes (%) (Auto) 5.5 0.0-12.0 % Eosinophils (%) (Auto) 1.3 0.0-7.0 % Basophils (%) (Auto) 0.8 0.0-2.0 % Neutrophils # (Auto) 3.6 1.6-8.6 10 ^3/uL Lymphocytes # (Auto) 3.2 0.4-5.4 10 ^3/uL Monocytes # (Auto) 0.4 0-1.3 10 ^3/uL Eosinophils # (Auto) 0.1 0-0.8 10 ^3/uL Basophils # (Auto) 0.1 0-0.2 10 ^3/uL Nucleated Red Blood Cells 0.1 % Sodium Level 135 L 136-145 mmol/L Potassium Level 4.3 3.5-5.1 mmol/L Chloride Level 102 98-107 mmol/L Carbon Dioxide Level 24 20-31 mmol/L Anion Gap 9 5-15 Blood Urea Nitrogen 12 9-23 mg/dL Creatinine 0.88 0.550-1.02 mg/dL Glomerular Filtration Rate Calc 77 >90 mL/min BUN/Creatinine Ratio 13.6 10.0-20.0 Serum Glucose 237 H 74-106 mg/dL Calcium Level 10.7 H 8.7-10.4 mg/dL Current Medications Medications (Trade) Dose Ordered Sig/Monty Route Start Time Stop Time Status Last Admin Sodium Chloride 1,000 ml @ 1,000 mls/hr Q1H ONCE IV 07/24/24 11:30 07/24/24 12:29 DC 07/24/24 11:50 The CBC and chemistry panel are within normal limits The glucose is 237 An IV Hep-Lock was established and the patient was given a 1 L bolus of normal saline The urine test is positive for UTI The patient is afebrile We are discharged in the patient on Levaquin The patient will follow up with the primary care doctor The patient will return to the emergency department's the condition worsens Time of 1ST Reevaluation: 11:50 Reevaluation 1ST: Unchanged Patient Education/Counseling: Diagnosis, Treatment, Prognosis, Need For Follow Up Family Education/Counseling: No Family Present Departure 1 Departure Time of Disposition: 12:54 Impression: Primary Impression: UTI (urinary tract infection) Qualified Codes: N30.00 - Acute cystitis without hematuria Disposition: 01 HOME / SELF CARE / HOMELESS Condition: Fair e-Prescriptions Levofloxacin Hemihydrate (LEVAQUIN 500 MG) 500 Mg Tab 500 MG PO DAILY for 7 Days, #7 TAB Prov: NIKITA OCHOA MD 07/24/24 Discharged With: Self Critical Care Note Critical Care Time?: No Stability Stability form required: No Heart Score Heart Score: Heart Score Response (Comments) Value History N/A 0 EKG N/A 0 Age N/A 0 Risk Factors N/A 0 Troponin N/A 0 Total 0 I personally scribed for NIKITA OCHOA MD ([email or web address]) on 07/24/24 at 11:36. Electronically submitted by Fortino Yanez ([email or web address]). NIKITA OCHOA MD July 24, 2024 11:36
[2024-07-24 11:50] LABS: Basophils # (auto) 0.1 10 ^3/uL (0-0.2); Basophils % (auto) 0.8 % (0.0-2.0); Eosinophils # (auto) 0.1 10 ^3/uL (0-0.8); Eosinophils % (auto) 1.3 % (0.0-7.0); Hemoglobin 14.2 g/dL (12.2-16.2); Lymphocytes # (auto) 3.2 10 ^3/uL (0.4-5.4); Lymphocytes % (auto) 43.2 % (10.0-50.0); Mean Corpuscular Hemoglobin 31.8 pg (28.0-32.0); Mean Corpuscular Hgb Conc. 34.7 g/dL (32.0-36.0); Mean Corpuscular Volume 91.7 fL (80.0-100.0); Monocytes # (auto) 0.4 10 ^3/uL (0-1.3); Monocytes % (auto) 5.5 % (0.0-12.0); Neutrophils # (auto) 3.6 10 ^3/uL (1.6-8.6); Neutrophils % (auto) 49.2 % (37.0-80.0); Nucleated Red Blood Cells % 0.1 %; Platelet Count (auto) 182 10^3/uL (140-450); Red Blood Cells 4.47 10^6/uL (4.0-5.20); Red Cell Distribution Width 13.1 % (11.8-14.3); White Blood Cell 7.4 10^3/uL (4.4-10.8)
[2024-07-24] MEDS: SODIUM CHLORIDE 0.9% 1,000 ML IV ONE (11:50)
[2024-07-24 11:59] LABS: Chloride 102 mmol/L (98-107)
[2024-07-24 12:00] LABS: Anion Gap 9 (5-15); Carbon Dioxide 24 mmol/L (20-31); Potassium 4.3 mmol/L (3.5-5.1)
[2024-07-24 12:02] LABS: Calcium 10.7 mg/dL (8.7-10.4); Sodium 135 mmol/L (136-145)
[2024-07-24 12:06] LABS: BUN/Creatinine Ratio 13.6 (10.0-20.0); Blood Urea Nitrogen 12 mg/dL (9-23); Glucose 237 mg/dL (74-106)
[2024-07-24 12:19] LABS: Urine Bacteria FEW /hpf (None Seen); Urine Blood Negative /uL (Negative); Urine Clarity Clear (Clear); Urine Color Light-Yellow (Yellow); Urine Protein, UAD Negative (Negative); Urine Specific Gravity 1.007 (1.001-1.035); Urine Squamous Epithelial Cell FEW /hpf (<5); Urine Urobilinogen Normal (Negative); Urine WBC 15 /HPF (0-5)
[2024-07-24] MEDS ORDERED: LEVO500T91 PO (12:51)
[2024-07-24 13:03] VITALS: BP 142/65; PULSE 78; RESP 16; TEMP 98.6; O2SAT 98
== END 2024-07-24 13:05 | disposition home or self-care (01) ==
LOC: ER 10:23
DX: N39.0 Urinary tract infection, site not specified (principal); I10 Essential (primary) hypertension; E11.9 Type 2 diabetes mellitus without complications; E78.5 Hyperlipidemia, unspecified; Z87.440 Personal history of urinary (tract) infections; Z87.891 Personal history of nicotine dependence; Z98.51 Tubal ligation status; Z88.1 Allergy status to other antibiotic agents
CPT/HCPCS: 36415; 80048; 81001; 85025; 96360; 99283; J7030

== ENCOUNTER 2024-08-13 09:08 | Emergency (ER) | payer MEDICAID ==
[~2024-08-13] VITALS: Ht 157.5 cm; Wt 58.4 kg
[~2024-08-13 09:08] MED LIST changes: +LEVO500T91 PO
--- NOTE | 2024-08-13 09:37 | DVH ---
CHEST RADIOGRAPH Indication: r/o pna Technique: Single frontal view of the chest was obtained Comparison: XY CHEST PORTABLE on DOS: 05/25/24 FINDINGS: Lines and Tubes: None Lungs: No focal consolidation. Pleura: No effusion. No pneumothorax. Cardiomediastinal contours: Unremarkable. Upper abdomen: There are surgical clips in the right upper quadrant. Bones: No acute osseous abnormality. S shaped scoliosis. IMPRESSION: 1. No acute cardiopulmonary disease.
--- NOTE | 2024-08-13 10:15 | ED.PDOC ---
Eye-HPI HPI Comments This is a 58 year old female presenting to the ED with chief complaint of flu- like illness onset last night. Patient reports that she has been experiencing a sore throat with associated green productive cough, nasal congestion, body aches, shoulder pain, nausea, headache, and fever. Has taken cough drops and hot tea with no relief. Denies any sick contacts or recent travel Denies chest pain shortness of breath Denies inability to move neck, history of meningitis Denies difficulty swallowing nor persistent salivation Denies chills night sweats Denies persistent cough, runny nose, congestion Denies loss of appetite, unintentional weight loss over the past 3 months Denies voice changes Denies history of asthma or seasonal allergies Chief Complaint: Flu like Time Seen by MD: 10:01 Primary Care Provider: MANUELITO Rios Notes: Nurses Notes, Medications, Allergies Allergies: Coded Allergies: Ciprofloxacin (Verified Allergy, Unknown, 05/25/24) Uncoded Allergies: NOVACAINE (Allergy, Severe, 09/28/19) Home Meds Active Scripts Promethazine-Dm (Promethazine Dm 6.25-15 mg/5Ml) 1 Karine Karine, 5 ML PO TID for 10 Days, #150 ML 0 Refills Prov:ADAM VINES NP 08/13/24 Benzonatate (Benzonatate) 100 Mg Cap, 1 CAP PO TID for 10 Days, #30 CAP 0 Refills Prov:ADAM VINES NP 08/13/24 Cefpodoxime Proxetil (Cefpodoxime Proxetil) 200 Mg Tab, 1 TAB PO BID for 10 Days, #20 TAB 0 Refills Prov:ADAM VINES NP 08/13/24 Levofloxacin Hemihydrate (LEVAQUIN 500 MG) 500 Mg Tab, 500 MG PO DAILY for 7 Days, #7 TAB Prov:NIKITA OCHOA MD 07/24/24 Nitrofurantoin Monohydrate Mac (Macrobid) 100 Mg Cap, 100 MG PO BID for 7 Days, #14 CAP 0 Refills Prov:SOBEIDA ROTHMAN 07/16/24 Acetaminophen (Acetaminophen) 500 Mg Tab, 500 MG PO Q4HPRN, #30 TAB 0 Refills Prov:SOBEIDA ROTHMAN 07/16/24 Cephalexin Monohydrate (Cephalexin) 500 Mg Cap, 500 MG PO Q6HR for 7 Days, #28 CAP Prov:MARI CARMONA DO 05/25/24 Ciprofloxacin Hcl (Ciprofloxacin Hcl) 500 Mg Tab, 1 TAB PO BID for 7 Days, #14 TAB Prov:SARI HOWARD DANNI 01/12/24 Information Source: Patient Mode of Arrival: Ambulatory Timing: Hours Duration: Since onset Prehospital treatment: None Quality: Pain Lids: Normal Conjunctiva: Normal Cornea: Normal Pupils: Normal EOM: Normal Fundus: Normal Anterior chamber: Normal Mouth Location: Pharynx Mouth: Normal ENT Ear Exam: Normal Nose: Normal Sinuses: Normal Oropharynx: Normal Onset: Spontaneous Throat Exposed to: None History of: None Associated signs and symptoms: Fever, Sore Throat Past Medical History PAST MEDICAL HISTORY: DM, High Lipids, HTN, UTI'S Surgical History: Tubal Ligation Surgical History (Other): Right nephrectomy ASSISTANT MEDIA PLANNER History: No Pertinent ASSISTANT MEDIA PLANNER History Family History Family History: Reviewed,noncontributory to illness, Family hx of DM Social History Smoker: Non-Smoker Alcohol: Denies ETOH Use Drugs: Denies Drug Use Lives In: Home Constitutional: reports: fever, others (Body aches); denies: chills, diaphoresi s, fatigue, malaise, sweats, weakness EENTM: reports: nose congestion, throat pain; denies: blurred vision, double vision, ear bleeding, ear discharge, ear drainage, ear pain, ear ringing, eye pain, eye redness, hearing loss, mouth pain, mouth swelling, nasal discharge, nose bleeding, nose pain, photophobia, tearing, throat swelling, voice changes, others Respiratory: reports: cough; denies: hemoptysis, orthopnea, SOB at rest, shortness of breath, SOB with excertion, stridor, wheezing, others Cardiovascular: denies: chest pain, dizzy spells, diaphoresis, Dyspnea on exertion, edema, irregular heart beat, left arm pain, lightheadedness, palpitations, PND, syncope, others Gastrointestinal: reports: nausea; denies: abdomen distended, abdominal pain, blood streaked bowels, constipated, diarrhea, dysphagia, difficulty swallowing, hematemesis, melena, poor appetite, poor fluid intake, rectal bleeding, rectal pain, vomiting, others Genitourinary: denies: abnormal vagina bleeding, burning, dyspareunia, dysuria, flank pain, frequency, hematuria, incontinence, pain, , vagina discharge, urgency, others Neurological: reports: headache; denies: dizziness, fainting, left sided numbness, left sided weakness, numbness, paresthesia, pre-existing deficit, right sided numbness, right sided weakness, seizure, speech problems, tingling, tremors, weakness, others Musculoskeletal: reports: others (Shoulder pain); denies: back pain, gout, joint pain, joint swelling, muscle pain, muscle stiffness, neck pain Integumetry: denies: bruises, change in color, change in hair/nails, dryness, laceration, lesions, lumps, rash, wounds, others Allergic/Immunocompromised: denies: Difficulty Healing, Frequent Infections, Hives, Itching, others Hematologic/Lymphatic: denies: anemia, blood clots, easy bleeding, easy bruising, swollen glands, others Endocrine: denies: excessive hunger, excessive sweating, excessive thirst, excessive urination, flushing, intolerance to cold, intolerance to heat, unexplained weight gain, unexplained weight loss, others Psychiatric: denies: anxiety, bipolar disorder, depression, hopeless, panic disorder, schizophrenia, sleepless, suicidal, others All Other Systems: Reviewed and Negative Physical Exam General Appearance: No Apparent Distress, Normal, Other (Non-toxic, non ill- appearing) HEENT: Normal ENT Inspection, Pharynx Normal, TMs Normal, Other (Uvula midline, no airway obstruction or strawberry tongue. No [place] spots, neck supple. ) Neck: Full Range of Motion, Non-Tender, Normal, Normal Inspection Respiratory: Chest Non-Tender, Lungs Clear, No Accessory Muscle Use, No Respiratory Distress, Normal Breath Sounds Cardiovascular: No Edema, No JVD, No Murmur, No Gallop, Normal Peripheral Pulses, Regular Rate/Rhythm Breast Exam: Deferred Gastrointestinal: No Organomegaly, Non Tender, No Pulsatile Mass, Normal Bowel Sounds, Soft Genitalia: Deferred Pelvic: Deferred Rectal: Deferred Extremities: No calf tenderness, Normal capillary refill, Normal inspection, Normal range of motion, Non-tender, No pedal edema Musculoskeletal : Apperance: Normal Neurologic: Alert, cattle rancher II-XII nml as Tested, No Motor Deficits, Normal Affect, Normal Mood, No Sensory Deficits Cerebellar Function: Normal Reflexes: Normal Skin: Dry, Normal Color, Warm Lymphatic: No Adenopathy Was a procedure done? Was a procedure done?: No EENT DIFF Eye: N/A Sore Throat: Streptococcal, Viral Pharyngitis, URI X-Ray, Labs, Meds, VS Vital Signs Date Time Temp Pulse Resp B/P (MAP) Pulse Ox O2 Delivery O2 Flow Rate FiO2 08/13/24 09:39 114 18 96 Room Air 08/13/24 09:39 99.4 114 18 97/50 (66) 6 99.4 08/13/24 09:23 18 98 Room Air* 0 21 08/13/24 09:19 98.9 120 18 96/50 (65) 96 98.9 Lab Test 08/13/24 10:12 08/13/24 09:43 Range/Units White Blood Count 8.6 4.4-10.8 10^3/uL Red Blood Count 4.27 4.0-5.20 10^6/uL Hemoglobin 13.7 12.2-16.2 g/dL Hematocrit 39.5 36.0-46.0 % Mean Corpuscular Volume 92.6 80.0-100.0 fL Mean Corpuscular Hemoglobin 32.1 H 28.0-32.0 pg Mean Corpuscular Hemoglobin Concent 34.6 32.0-36.0 g/dL Red Cell Distribution Width 13.0 11.8-14.3 % Platelet Count 157 140-450 10^3/uL Mean Platelet Volume 7.9 6.9-10.8 fL Neutrophils (%) (Auto) 74.5 37.0-80.0 % Lymphocytes (%) (Auto) 17.3 10.0-50.0 % Monocytes (%) (Auto) 6.4 0.0-12.0 % Eosinophils (%) (Auto) 1.5 0.0-7.0 % Basophils (%) (Auto) 0.3 0.0-2.0 % Neutrophils # (Auto) 6.4 1.6-8.6 10 ^3/uL Lymphocytes # (Auto) 1.5 0.4-5.4 10 ^3/uL Monocytes # (Auto) 0.5 0-1.3 10 ^3/uL Eosinophils # (Auto) 0.1 0-0.8 10 ^3/uL Basophils # (Auto) 0 0-0.2 10 ^3/uL Nucleated Red Blood Cells 0.1 % Sodium Level 136 136-145 mmol/L Potassium Level 4.2 3.5-5.1 mmol/L Chloride Level 104 98-107 mmol/L Carbon Dioxide Level 25 20-31 mmol/L Anion Gap 7 5-15 Blood Urea Nitrogen 13 9-23 mg/dL Creatinine 0.83 0.550-1.02 mg/dL Glomerular Filtration Rate Calc 82 >90 mL/min BUN/Creatinine Ratio 15.7 10.0-20.0 Serum Glucose 207 H 74-106 mg/dL Calcium Level 10.1 8.7-10.4 mg/dL Troponin I High Sensitivity 3 L </=34 ng/L Urine Color Yellow Yellow Urine Clarity Clear Clear Urine pH 5.0 5.0-9.0 Urine Specific [place] 1.018 1.001-1.035 Urine Protein Negative Negative Urine Ketones Negative Negative Urine Blood Trace H Negative /uL Urine Nitrite Negative Negative Urine Bilirubin Negative Negative Urine Urobilinogen Normal Negative mg/dL Urine Leukocyte Esterase 3+ Negative /uL Urine RBC 3 0 - 4 /hpf Urine Microscopic WBC 48 H 0-5 /HPF Urine Squamous Epithelial Cells Few <5 /hpf Urine Bacteria None seen None Seen /hpf Urine Mucus Few None Seen Urine Glucose 2+ H Normal mg/dL Group A Streptococcus Rapid Negative Current Medications Medications (Trade) Dose Ordered Sig/Monty Route Start Time Stop Time Status Last Admin Sodium Chloride 1,000 ml @ 1,000 mls/hr Q1H ONCE IV 08/13/24 09:45 08/13/24 10:45 DC 08/13/24 10:22 Belladonna Alkaloids/ Phenobarbital ( Elixir) 10 ml ONCE ONCE PO 08/13/24 10:15 08/13/24 10:29 DC 08/13/24 10:52 Al Hydrox/Mg Hydrox/Simethicone (Maalox Plus) 30 ml ONCE ONCE PO 08/13/24 10:15 08/13/24 10:29 DC 08/13/24 10:52 Lidocaine HCl (Xylocaine 2% Viscous) 15 ml ONCE ONCE PO 08/13/24 10:15 08/13/24 10:29 DC 08/13/24 10:[address] [address] Ph: [phone] DIAGNOSTIC IMAGING Diagnostic Imaging Report : [id number] Signed PATIENT: MARII MOELLER MACCT: [id number] UNIT: [id number] : 1965 LOC: ER ROOM / BED: / AGE / SEX: 58 / F ADM STATUS: REG ER SERVICE 3 ORDERING PHYSICIAN: ADAM VINES NP PROCEDURE(s): CXR1 - CHEST XRAY 1 VIEW REASON: r/o pna ORDER NUMBER(s): [id number], ACCESSION NUMBER(s): [id number] CHEST RADIOGRAPH Indication: r/o pna Technique: Single frontal view of the chest was obtained Comparison: XY CHEST PORTABLE on DOS: 05/25/24 FINDINGS: Lines and Tubes: None Lungs: No focal consolidation. Pleura: No effusion. No pneumothorax. Cardiomediastinal contours: Unremarkable. Upper abdomen: There are surgical clips in the right upper quadrant. Bones: No acute osseous abnormality. S shaped scoliosis. IMPRESSION: 1. No acute cardiopulmonary disease. ATED BY: JINNY URIOSTEGUI MD DICTATED DATE/TIME: 08/13/24934 SIGNED BY: JINNY URIOSTEGUI MD SIGNED DATE/TIME: 08/13/24934 CC: X-Ray, Labs, Meds, VS Comment This is a 58 year old female presenting to the ED with chief complaint of flu- like illness onset last night. Patient arrives alert and oriented, ABC's intact, afebrile, vital signs stable, saturating well in room air Peripheral IV insertion+ labs were ordered. CBC was ordered to exclude anemia, blood loss, or infection. BMP was ordered to exclude electrolyte abnormalities, renal failure, dehydration, hyperglycemia Troponin was ordered to rule out myocardial infarction. Urinalysis was ordered to rule out UTI or hematuria. Rapid Strep was ordered to rule out strep throat Diagnostic imaging ordered by me and results interpreted by radiology : Chest XR Labs in the ED showed 3+ Leuko Patient was given: GI Cocktail PO. Tolerated medications with no adverse reaction. The patient presents with signs and symptoms that are consistent with a urinary tract infection. The urinalysis confirms the diagnosis. There does not appear to be any signs or symptoms of pyelonephritis or sepsis. A urine culture was sent and is pending. In the ED, the patient was treated with IV Fluids Prescribed p.o. antibiotics for presentation of symptom Complete course of antibiotic therapy even if symptoms improve or resolve. There should be no leftover antibiotics as this can lead to antibiotic resistant bacteria and even worse infection. Parents verbalized understanding. Potential side effects discussed with patient including abdominal pain, nausea, diarrhea. Additional MDM Review of External, Non-ED records: External records reviewed. History obtained from the patient at bedside Chronic conditions affecting care: HLD, HTN, DM Social determinants of health affecting care: None Consideration of admission (observation or admission): I considered escalation of care to admission for this patient, however given the reassuring workup, the patient is safe for outpatient management. Discussion with the Radiology: No Tests considered but not performed: None Prescription medication considered but not given: None Time of 1ST Reevaluation: 11:02 Reevaluation 1ST: Unchanged Time of 2ND Reevaluation: 11:28 Patient Education/Counseling: Diagnosis, Treatment Family Education/Counseling: No Family Present Departure 1 Departure Time of Disposition: :28 Impression: Primary Impression: UTI (urinary tract infection) Qualified Codes: N30.00 - Acute cystitis without hematuria Additional Impression: Pharyngitis Qualified Codes: J02.9 - Acute pharyngitis, unspecified Disposition: 01 HOME / SELF CARE / HOMELESS Condition: Fair e-Prescriptions Promethazine-Dm (Promethazine Dm 6.25-15 mg/5Ml) 1 Karine Karine 5 ML PO TID for 10 Days, #150 ML 0 Refills Prov: ADAM VINES NP 08/13/24 Benzonatate (Benzonatate) 100 Mg Cap 1 CAP PO TID for 10 Days, #30 CAP 0 Refills Prov: ADAM VINES TUBE CUTTER OPERATOR 08/13/24 Cefpodoxime Proxetil (Cefpodoxime Proxetil) 200 Mg Tab 1 TAB PO BID for 10 Days, #20 TAB 0 Refills Prov: ADAM VINES NP 08/13/24 Critical Care Note Critical Care Time?: No Stability Stability form required: No Heart Score Heart Score: Heart Score Response (Comments) Value History N/A 0 EKG N/A 0 Age N/A 0 Risk Factors N/A 0 Troponin N/A 0 Total 0 I personally scribed for ADAM VINES NP ([email or web address]) on 08/13/24 at 10:15. Electronically submitted by Sylvester Diane ([email or web address]). I personally scribed for ADAM VINES TUBE CUTTER OPERATOR ([email or web address]!) on 08/13/24 at 10:16. Electronically submitted by Sylvester Diane ([email or web address]). I personally scribed for ADAM VINES NP ([email or web address]!) on 08/13/24 at 10:49. Electronically submitted by Sylvester Diane ([email or web address]). ADAM VINES NP August 13, 2024 10:15
[2024-08-13] MEDS: SODIUM CHLORIDE 0.9% 1,000 ML IV ONE (10:22)
[2024-08-13 10:29] LABS: Urine Bacteria None Seen /hpf (None Seen)
[2024-08-13 10:33] LABS: Basophils # (auto) 0 10 ^3/uL (0-0.2); Basophils % (auto) 0.3 % (0.0-2.0); Eosinophils # (auto) 0.1 10 ^3/uL (0-0.8); Eosinophils % (auto) 1.5 % (0.0-7.0); Hematocrit 39.5 % (36.0-46.0); Hemoglobin 13.7 g/dL (12.2-16.2); Lymphocytes # (auto) 1.5 10 ^3/uL (0.4-5.4); Lymphocytes % (auto) 17.3 % (10.0-50.0); Mean Corpuscular Hemoglobin 32.1 pg (28.0-32.0); Mean Corpuscular Hgb Conc. 34.6 g/dL (32.0-36.0); Mean Corpuscular Volume 92.6 fL (80.0-100.0); Monocytes # (auto) 0.5 10 ^3/uL (0-1.3); Monocytes % (auto) 6.4 % (0.0-12.0); Neutrophils # (auto) 6.4 10 ^3/uL (1.6-8.6); Neutrophils % (auto) 74.5 % (37.0-80.0); Nucleated Red Blood Cells % 0.1 %; Platelet Count (auto) 157 10^3/uL (140-450); Red Blood Cells 4.27 10^6/uL (4.0-5.20); White Blood Cell 8.6 10^3/uL (4.4-10.8)
[2024-08-13 10:39] LABS: Urine Blood TRACE /uL (Negative); Urine Clarity Clear (Clear); Urine Color Yellow (Yellow); Urine Mucus FEW (None Seen); Urine Protein, UAD Negative (Negative); Urine Specific Gravity 1.018 (1.001-1.035); Urine Squamous Epithelial Cell FEW /hpf (<5); Urine Urobilinogen Normal (Negative); Urine WBC 48 /HPF (0-5)
[2024-08-13 10:45] LABS: Anion Gap 7 (5-15); Carbon Dioxide 25 mmol/L (20-31); Chloride 104 mmol/L (98-107); Potassium 4.2 mmol/L (3.5-5.1)
[2024-08-13 10:46] LABS: Calcium 10.1 mg/dL (8.7-10.4)
[2024-08-13 10:51] LABS: BUN/Creatinine Ratio 15.7 (10.0-20.0); Blood Urea Nitrogen 13 mg/dL (9-23)
[2024-08-13] MEDS: MAALOX PLUS or MAALOX 30 ML PO ONE (10:52)
[2024-08-13] MEDS: DONNATAL 5ml ORAL Elix (BELLADONNA ALK-PHENOBARB) PO ONE (10:52)
[2024-08-13] MEDS: LIDOCAINE VISCOUS 2% 15ML UD PO ONE (10:52)
[2024-08-13 10:56] LABS: Glucose 207 mg/dL (74-106); Sodium 136 mmol/L (136-145)
[2024-08-13 11:11] LABS: Rapid Strep A Screen-Throat Negative
[2024-08-13] MEDS ORDERED: BENZ100C97 PO (11:20)
[2024-08-13] MEDS ORDERED: PROM1SOL4 PO (11:20)
[2024-08-13] MEDS ORDERED: CEFP200T15 PO (11:20)
[2024-08-13 12:10] VITALS: BP 113/66; PULSE 97; RESP 16; TEMP 99; O2SAT 98
== END 2024-08-13 12:13 | disposition home or self-care (01) ==
LOC: ER 09:08
DX: N39.0 Urinary tract infection, site not specified (principal); J02.9 Acute pharyngitis, unspecified; E11.9 Type 2 diabetes mellitus without complications; E78.5 Hyperlipidemia, unspecified; I10 Essential (primary) hypertension; Z87.440 Personal history of urinary (tract) infections; Z98.51 Tubal ligation status; Z98.890 Other specified postprocedural states; Z88.1 Allergy status to other antibiotic agents; Z79.899 Other long term (current) drug therapy
CPT/HCPCS: 36415; 71045; 80048; 81001; 84484; 85025; 87070; 87086; 87880; 96360; 96361; 99284; J7030

== ENCOUNTER 2024-09-03 12:05 | Emergency (ER) | payer MEDICAID ==
[~2024-09-03] VITALS: Ht 157.5 cm; Wt 58.9 kg
[~2024-09-03 12:05] MED LIST changes: +BENZ100C97 PO; +CEFP200T15 PO; +PROM1SOL4 PO
--- NOTE | 2024-09-03 12:27 | ED.PDOC ---
General HPI Comments Initial Vitals BP: 113/70 HR: 97 RR: 18 O2 Sat: 98% Temp: 98.8F Past Medical history: HTN, HLD, DM, Kidney Cancer Past Surgical history: Right nephrectomy, Tubal Ligation Medications: Lisinopril, Metformin, Simvastatin, ASA Social History: Denies smoking, ETOH, and drug use. Allergies: Ciprofloxacin, Novocaine HPI: Poor Historian. 58-year-old female presents to emergency for evaluation of what she suspects as I think I have a UTI again. Patient complains of some dysuria and increasing urinary frequency and some minimal suprapubic discomfort. Denies any other acut e symptoms. REVIEW OF SYSTEMS: CONSTITUTIONAL: Denies acute: fever, diaphoresis, chills, generalized weakness. HEAD: Denies acute: headache, photophobia Eyes: Denies acute: Double vision, vision loss, eye pain, eye discharge. EARS: Denies acute: tinnitus, hearing loss, ear discharge, ear pain, THROAT: Denies acute: sore throat, swelling, difficulty swallowing , pain with swallowing, change in voice. NECK: Denies acute: neck pain, neck swelling, stiff neck. HEART: Denies acute : chest pain, palpitations, LUNGS: Denies acute: SOB, wheezing, cough, hemoptysis ABDOMEN: Denies acute: abdominal pain, Nausea, Vomiting, diarrhea, melena , hematemesis, hematochezia SKIN: Denies acute: rash, redness, lesions, itchiness. EXTREMITIES: Denies acute: calf pain, numbness, tingling, weakness, denies pain in extremity. Denies acute: Low back pain. Neuro: Denies acute: focal neurological deficit, motor or sensory focal neurological deficit, tremors, seizure like activity, confusion, dizziness, change in mental status, loss of bowel or bladder function, cauda equina like symptoms. : Denies acute: hematuria, flank pain, PSYCH: Denies acute: hallucination, suicidal ideation, homicidal ideation. FEMALE: Denies acute: abnormal vaginal bleeding, foul odor, unusual discharge. PHYSICAL EXAM: General: ---no-----acute distress, awake and alert. Head: normocephalic, atraumatic. Neck: supple, trachea is midline, no swelling. Throat: Normal phonation. Eyes:, no erythema, no purulent discharge, no proptosis, no icterus. Heart: regular rate, regular rhythm, no significant murmur appreciated. Lungs: no apparent respiratory distress, Able to speak in full sentences. No wheezing, no rhonchi, no crackles. No stridors Clear to auscultation bilaterally. Abdomen: Suprapubic mild tender to palpation, non distended, soft, no guarding, no rebound, + bowel sounds. Neuro: Awake, Alert, oriented to name, self, situation, follows commands GCS=15. Speech is normal. Skin: no petechia, no purpura, no cyanosis, non-pale, not jaundice. Lower extremities: --no - Pitting edema no deformity, no focal swelling, no calf TTP. Makes eye contact. moves all four extremities. Face: no apparent facial droop. No CVA tenderness to percussion bilaterally. Ambulating in the ED independently. ED COURSE: DISCLAIMER: This medical document was created using an electronic medical record system with voice recognition software and computerized dictation system. Although this document has been carefully reviewed, there might still be some phonetic and typographical errors. Occasional wrong-word or "sound-alike" substitutions may have occurred due to the inherent limitations of voice recognition software. These areas are purely typographical due to imperfections of the software programs and do not reflect any compromise in the patient's medical care. Please read the chart carefully and recognize, using context, where these substitutions have occurred. Chief Complaint: Urinary Time Seen by MD: 12:26 Primary Care Provider: MANUELITO Reviewed notes: Medications, Allergies Allergies: Coded Allergies: Ciprofloxacin (Verified Allergy, Unknown, 05/25/24) Uncoded Allergies: NOVACAINE (Allergy, Severe, 09/28/19) Home Meds Active Scripts Nitrofurantoin Monohydrate Mac (Macrobid) 100 Mg Cap, 100 MG PO BID for 7 Days, #14 CAP Prov:MARI CARMONA DO 09/03/24 Promethazine-Dm (Promethazine Dm 6.25-15 mg/5Ml) 1 Karine Karine, 5 ML PO TID for 10 Days, #150 ML 0 Refills Prov:ADAM VINES PUBLICATION EDITOR 08/13/24 Benzonatate (Benzonatate) 100 Mg Cap, 1 CAP PO TID for 10 Days, #30 CAP 0 Refills Prov:ADAM VINES PUBLICATION EDITOR 08/13/24 Cefpodoxime Proxetil (Cefpodoxime Proxetil) 200 Mg Tab, 1 TAB PO BID for 10 Days, #20 TAB 0 Refills Prov:ADAM VINES PUBLICATION EDITOR 08/13/24 Levofloxacin Hemihydrate (LEVAQUIN 500 MG) 500 Mg Tab, 500 MG PO DAILY for 7 Days, #7 TAB Prov:NIKITA OCHOA MD 07/24/24 Nitrofurantoin Monohydrate Mac (Macrobid) 100 Mg Cap, 100 MG PO BID for 7 Days, #14 CAP 0 Refills Prov:SOBEIDA ROTHMAN 07/16/24 Acetaminophen (Acetaminophen) 500 Mg Tab, 500 MG PO Q4HPRN, #30 TAB 0 Refills Prov:SOBEIDA ROTHMAN 07/16/24 Cephalexin Monohydrate (Cephalexin) 500 Mg Cap, 500 MG PO Q6HR for 7 Days, #28 CAP Prov:MARI CARMONA DO 05/25/24 Ciprofloxacin Hcl (Ciprofloxacin Hcl) 500 Mg Tab, 1 TAB PO BID for 7 Days, #14 TAB Prov:SARI HOWARD 01/12/24 Information Source: Patient Mode of Arrival: Ambulatory Was a procedure done? Was a procedure done?: No Differential Diagnosis Kidney stone (Female): N/A Urinary Problem (Female): PID, Pyelonephritis, Urinary retention, UTI X-Ray, Labs, Meds, VS Vital Signs Date Time Temp Pulse Resp B/P (MAP) Pulse Ox O2 Delivery O2 Flow Rate FiO2 09/03/24 17:06 17 09/03/24 17:04 98.2 91 17 116/63 (80) 98 98.2 09/03/24 12:15 98.5 97 18 113/70 (84) 98 98.5 Lab Test 09/03/24 12:50 09/03/24 12:19 Range/Units White Blood Count 7.1 4.4-10.8 10^3/uL Red Blood Count 4.46 4.0-5.20 10^6/uL Hemoglobin 14.4 12.2-16.2 g/dL Hematocrit 41.1 36.0-46.0 % Mean Corpuscular Volume 92.1 80.0-100.0 fL Mean Corpuscular Hemoglobin 32.2 H 28.0-32.0 pg Mean Corpuscular Hemoglobin Concent 35.0 32.0-36.0 g/dL Red Cell Distribution Width 13.0 11.8-14.3 % Platelet Count 176 140-450 10^3/uL Mean Platelet Volume 7.4 6.9-10.8 fL Neutrophils (%) (Auto) 50.7 37.0-80.0 % Lymphocytes (%) (Auto) 41.9 10.0-50.0 % Monocytes (%) (Auto) 5.6 0.0-12.0 % Eosinophils (%) (Auto) 1.2 0.0-7.0 % Basophils (%) (Auto) 0.6 0.0-2.0 % Neutrophils # (Auto) 3.6 1.6-8.6 10 ^3/uL Lymphocytes # (Auto) 3.0 0.4-5.4 10 ^3/uL Monocytes # (Auto) 0.4 0-1.3 10 ^3/uL Eosinophils # (Auto) 0.1 0-0.8 10 ^3/uL Basophils # (Auto) 0 0-0.2 10 ^3/uL Nucleated Red Blood Cells 0.1 % Sodium Level 141 136-145 mmol/L Potassium Level 4.0 3.5-5.1 mmol/L Chloride Level 105 98-107 mmol/L Carbon Dioxide Level 29 20-31 mmol/L Anion Gap 7 5-15 Blood Urea Nitrogen 11 9-23 mg/dL Creatinine 0.88 0.550-1.02 mg/dL Glomerular Filtration Rate Calc 77 >90 mL/min BUN/Creatinine Ratio 12.5 10.0-20.0 Serum Glucose 171 H 74-106 mg/dL Lactic Acid Level 2.0 0.4-2.0 mmol/L Calcium Level 10.9 H 8.7-10.4 mg/dL Total Bilirubin 1.6 H 0.2-1.0 mg/dL Aspartate Amino Transferase (AST) 21 <34 U/L Alanine Aminotransferase (ALT) 21 7-40 U/L Alkaline Phosphatase 86 46-116 U/L Total Protein 6.9 5.7-8.2 g/dL Albumin 4.4 3.2-4.8 g/dL Urine Color Colorless Yellow Urine Clarity Clear Clear Urine pH 6.0 5.0-9.0 Urine Specific [place] 1.005 1.001-1.035 Urine Protein Negative Negative Urine Ketones Negative Negative Urine Blood Negative Negative /uL Urine Nitrite Negative Negative Urine Bilirubin Negative Negative Urine Urobilinogen Normal Negative mg/dL Urine Leukocyte Esterase 3+ Negative /uL Urine RBC 2 0 - 4 /hpf Urine Microscopic WBC 51 H 0-5 /HPF Urine Squamous Epithelial Cells Few <5 /hpf Urine Bacteria Few H None Seen /hpf Urine Glucose Normal Normal mg/dL POC Glucose 194 H 70-106 mg/dl Time of 1ST Reevaluation: 13:26 Reevaluation 1ST: Unchanged Patient Education/Counseling: Diagnosis, Treatment Family Education/Counseling: No Family Present Comments Patient presented with the above HPI.---UTI symptoms---workup was initiated. patient was found with the above mentioned diagnosis. the following medications were ordered: please refer to order lists of meds and tests obtained by myself Dr. Carmona. Patient ED course and VS have been stabilized. Patient has been reassessed in the ED and remained in a stable condition. Pertinent incidental findings were discussed with the patient and/or family. Patient/family voices understanding and is agreeable with plan. Patient has been observed in the ED adequate length of time to insure improvement/stability. Escalation of care considered: Consideration of escalation to observation or admission Patient was DISCHARGED home in a stable condition. All the reports of any imaging studies that were ordered by myself were reviewed by myself. Departure 1 Departure Time of Disposition: 14:11 Impression: Primary Impression: UTI (urinary tract infection) Disposition: 01 HOME / SELF CARE / HOMELESS Condition: Stable Additional Instructions: Additional instructions: You MUST follow-up with your primary care/family doctor in 1 to 2 days. If you are unable to see your primary care/family doctor, please return to our emergency room for re-assessment and re-evaluation in 1 to 2 days. Return to the emergency room here in our facility or to the nearest ER [facility] if your symptoms change or worsen. CONSULTATIONS: you MUST Follow-up for consultation as soon as possible with: -urology and OB Gyne doctor in 1-2 days. Please call for appointment. You MUST call the consultants office yourself to make an appointment. You may need to arrange that through your insurance and/or your primary/family doctor. If you are unable to see the specialty development consultant in 1 to 2 days, you must return to our emergency room (or any other ER of your choice) for re-assessment and re- evaluation. Adequate fluid hydration. e-Prescriptions Nitrofurantoin Monohydrate Mac (Macrobid) 100 Mg Cap 100 MG PO BID for 7 Days, #14 CAP Prov: MARI CARMONA DO 09/03/24 Discharged With: Self Critical Care Note Critical Care Time?: No I personally scribed for MARI CARMONA DO ([email or web address]) on 09/03/24 at 12:27. Electronically submitted by Sylvester Diane ([email or web address]). I personally scribed for MARI CARMONA DO ([email or web address]) on 09/03/24 at 14:15. Electronically submitted by Sylvester Diane ([email or web address]). MARI CARMONA DO Sep 03, 2024 12:27
[2024-09-03 12:53] LABS: Urine Bacteria FEW /hpf (None Seen); Urine Blood Negative /uL (Negative); Urine Clarity Clear (Clear); Urine Color Colorless (Yellow); Urine Protein, UAD Negative (Negative); Urine Specific Gravity 1.005 (1.001-1.035); Urine Squamous Epithelial Cell FEW /hpf (<5); Urine Urobilinogen Normal (Negative); Urine WBC 51 /HPF (0-5)
[2024-09-03 13:01] LABS: Basophils # (auto) 0 10 ^3/uL (0-0.2); Basophils % (auto) 0.6 % (0.0-2.0); Eosinophils # (auto) 0.1 10 ^3/uL (0-0.8); Eosinophils % (auto) 1.2 % (0.0-7.0); Hematocrit 41.1 % (36.0-46.0); Hemoglobin 14.4 g/dL (12.2-16.2); Lymphocytes % (auto) 41.9 % (10.0-50.0); Mean Corpuscular Hemoglobin 32.2 pg (28.0-32.0); Mean Corpuscular Volume 92.1 fL (80.0-100.0); Monocytes # (auto) 0.4 10 ^3/uL (0-1.3); Monocytes % (auto) 5.6 % (0.0-12.0); Neutrophils # (auto) 3.6 10 ^3/uL (1.6-8.6); Neutrophils % (auto) 50.7 % (37.0-80.0); Nucleated Red Blood Cells % 0.1 %; Platelet Count (auto) 176 10^3/uL (140-450); Red Blood Cells 4.46 10^6/uL (4.0-5.20); White Blood Cell 7.1 10^3/uL (4.4-10.8)
[2024-09-03 13:16] LABS: Alanine Aminotransferase 21 U/L (7-40); Albumin 4.4 g/dL (3.2-4.8); Alkaline Phosphatase 86 U/L (46-116); Anion Gap 7 (5-15); Aspartate Aminotransferase 21 U/L (<34); BUN/Creatinine Ratio 12.5 (10.0-20.0); Blood Urea Nitrogen 11 mg/dL (9-23); Carbon Dioxide 29 mmol/L (20-31); Chloride 105 mmol/L (98-107); Sodium 141 mmol/L (136-145); Total Protein 6.9 g/dL (5.7-8.2)
[2024-09-03 13:18] LABS: Bilirubin, Total 1.6 mg/dL (0.2-1.0); Calcium 10.9 mg/dL (8.7-10.4); Glucose 171 mg/dL (74-106)
[2024-09-03] MEDS ORDERED: NITR-87 PO (14:13)
[2024-09-03 17:04] VITALS: BP 116/63; PULSE 91; TEMP 98.2; O2SAT 98
[2024-09-03 17:06] VITALS: RESP 17
== END 2024-09-03 17:30 | disposition home or self-care (01) ==
LOC: ER 12:05
DX: N39.0 Urinary tract infection, site not specified (principal); E11.9 Type 2 diabetes mellitus without complications; E78.5 Hyperlipidemia, unspecified; I10 Essential (primary) hypertension; Z88.1 Allergy status to other antibiotic agents; Z79.899 Other long term (current) drug therapy; Z98.51 Tubal ligation status; Z85.528 Personal history of other malignant neoplasm of kidney
CPT/HCPCS: 36415; 80053; 81001; 82947; 82962; 83605; 85025

== ENCOUNTER 2024-09-05 10:35 | Inpatient (IN) | payer MEDICAID ==
[~2024-09-05] VITALS: Ht 157.5 cm; Wt 59.1 kg
[2024-09-05 11:37] LABS: Urine Bacteria None Seen /hpf (None Seen)
[2024-09-05 11:47] LABS: Urine Blood Negative /uL (Negative); Urine Clarity Clear (Clear); Urine Color Light-Yellow (Yellow); Urine Protein, UAD Negative (Negative); Urine Squamous Epithelial Cell FEW /hpf (<5); Urine Urobilinogen Normal (Negative); Urine WBC 3 /HPF (0-5); Urine pH 5.5 (5.0-9.0)
[2024-09-05 12:13] LABS: Basophils # (auto) 0 10 ^3/uL (0-0.2); Basophils % (auto) 0.5 % (0.0-2.0); Eosinophils # (auto) 0.1 10 ^3/uL (0-0.8); Eosinophils % (auto) 1.4 % (0.0-7.0); Hematocrit 41.4 % (36.0-46.0); Hemoglobin 14.4 g/dL (12.2-16.2); Lymphocytes % (auto) 44.2 % (10.0-50.0); Mean Corpuscular Hemoglobin 31.9 pg (28.0-32.0); Mean Corpuscular Hgb Conc. 34.8 g/dL (32.0-36.0); Mean Corpuscular Volume 91.6 fL (80.0-100.0); Monocytes # (auto) 0.4 10 ^3/uL (0-1.3); Monocytes % (auto) 6.2 % (0.0-12.0); Neutrophils # (auto) 3.3 10 ^3/uL (1.6-8.6); Neutrophils % (auto) 47.7 % (37.0-80.0); Platelet Count (auto) 171 10^3/uL (140-450); Red Blood Cells 4.52 10^6/uL (4.0-5.20); Red Cell Distribution Width 12.7 % (11.8-14.3); White Blood Cell 6.9 10^3/uL (4.4-10.8)
[2024-09-05 12:33] LABS: Alanine Aminotransferase 25 U/L (7-40); Albumin 4.6 g/dL (3.2-4.8); Alkaline Phosphatase 78 U/L (46-116); Anion Gap 11 (5-15); Aspartate Aminotransferase 28 U/L (<34); BUN/Creatinine Ratio 10.5 (10.0-20.0); Blood Urea Nitrogen 9 mg/dL (9-23); Carbon Dioxide 26 mmol/L (20-31); Chloride 105 mmol/L (98-107); Potassium 3.9 mmol/L (3.5-5.1); Sodium 142 mmol/L (136-145); Total Protein 7.6 g/dL (5.7-8.2)
[2024-09-05 12:38] LABS: Calcium 11.4 mg/dL (8.7-10.4); Glucose 162 mg/dL (74-106)
[2024-09-05 12:40] LABS: Lactic Acid w/Reflex 2.2 mmol/L (0.4-2.0)
--- NOTE | 2024-09-05 13:35 | ED.PDOC ---
GI ASSESSMENT HPI Comments 58 y/o F returns to the ED following previous visit on 09/03/24 for same c/o some dysuria and increasing urinary frequency and some minimal suprapubic discomfort. Denies any other acute symptoms. Reports taking antibiotics she was prescribed but her symptoms has not improved. Vitals: temperature of 98.8F, pulse of 86, respiratory rate of 18, blood pressure of 129/79, and a SpO2 of 96%RA. Past Medical history: HTN, HLD, DM, Kidney Cancer Past Surgical history: Right nephrectomy, Tubal Ligation Medications: Lisinopril, Metformin, Simvastatin, ASA Social History: Denies smoking, ETOH, and drug use. Allergies: Ciprofloxacin, Novocaine HPI: Poor Historian. He has 8-year-old female presents to emergency department for evaluation of persistent UTI. She is on Macrobid currently and states that she is not getting any better. She was seen here and evaluated in the ER few days ago and prescribed outpatient medications. She still complains of suprapubic discomfort and burning with the urination. HPI: Poor Historian. REVIEW OF SYSTEMS: CONSTITUTIONAL: Denies acute: fever, diaphoresis, chills, generalized weakness. HEAD: Denies acute: headache, photophobia Eyes: Denies acute: Double vision, vision loss, eye pain, eye discharge. EARS: Denies acute: tinnitus, hearing loss, ear discharge, ear pain, THROAT: Denies acute: sore throat, swelling, difficulty swallowing , pain with swallowing, change in voice. NECK: Denies acute: neck pain, neck swelling, stiff neck. HEART: Denies acute : chest pain, palpitations, LUNGS: Denies acute: SOB, wheezing, cough, hemoptysis ABDOMEN: Denies acute: Nausea, Vomiting, diarrhea, melena , hematemesis, hematochezia SKIN: Denies acute: rash, redness, lesions, itchiness. EXTREMITIES: Denies acute: calf pain, numbness, tingling, weakness, denies pain in extremity. Denies acute: Low back pain. Neuro: Denies acute: focal neurological deficit, motor or sensory focal neurological deficit, tremors, seizure like activity, confusion, dizziness, change in mental status, loss of bowel or bladder function, cauda equina like symptoms. : Denies acute: hematuria, flank pain, PSYCH: Denies acute: hallucination, suicidal ideation, homicidal ideation. FEMALE: Denies acute: abnormal vaginal bleeding, foul odor, unusual discharge. PHYSICAL EXAM: General: --mild------acute distress, awake and alert. Head: normocephalic, atraumatic. Neck: supple, trachea is midline, no swelling. Throat: Normal phonation. Eyes:, no erythema, no purulent discharge, no proptosis, no icterus. Heart: regular rate, regular rhythm, no significant murmur appreciated. Lungs: no apparent respiratory distress, Able to speak in full sentences. No wheezing, no rhonchi, no crackles. No stridors Clear to auscultation bilaterally. Abdomen: Suprapubic tender to palpation, non distended, soft, no guarding, no rebound, + bowel sounds. Neuro: Awake, Alert, oriented to name, self, situation, follows commands GCS=15. Speech is normal. Skin: no petechia, no purpura, no cyanosis, non-pale, not jaundice. Lower extremities: --no - Pitting edema no deformity, no focal swelling, no calf TTP. Makes eye contact. moves all four extremities. Face: no apparent facial droop. Ambulating in the ED independently. No nuchal rigidity, Kernig's sign, Brudzinski's sign, no meningeal signs. ED COURSE: DISCLAIMER: This medical document was created using an electronic medical record system with voice recognition software and computerized dictation system. Although this document has been carefully reviewed, there might still be some phonetic and typographical errors. Occasional wrong-word or "sound-alike" substitutions may have occurred due to the inherent limitations of voice recognition software. These areas are purely typographical due to imperfections of the software programs and do not reflect any compromise in the patient's medical care. Please read the chart carefully and recognize, using context, where these substitutions have occurred. Chief Complaint: Urinary Time Seen by MD: 13:30 Primary Care Provider: SKERRIT Allergies: Coded Allergies: Ciprofloxacin (Verified Allergy, Unknown, 05/25/24) Uncoded Allergies: NOVACAINE (Allergy, Severe, 09/28/19) Home Meds Active Scripts Nitrofurantoin Monohydrate Mac (Macrobid) 100 Mg Cap, 100 MG PO BID for 7 Days, #14 CAP Prov:MARI CARMONA DO 09/03/24 Promethazine-Dm (Promethazine Dm 6.25-15 mg/5Ml) 1 Karine Karine, 5 ML PO TID for 10 Days, #150 ML 0 Refills Prov:ADAM VINES SIDE DOOR MAN 08/13/24 Benzonatate (Benzonatate) 100 Mg Cap, 1 CAP PO TID for 10 Days, #30 CAP 0 Refills Prov:ADAM VINES SIDE DOOR MAN 08/13/24 Cefpodoxime Proxetil (Cefpodoxime Proxetil) 200 Mg Tab, 1 TAB PO BID for 10 Days, #20 TAB 0 Refills Prov:ADAM VINES NP 08/13/24 Levofloxacin Hemihydrate (LEVAQUIN 500 MG) 500 Mg Tab, 500 MG PO DAILY for 7 Days, #7 TAB Prov:NIKITA OCHOA MD 07/24/24 Nitrofurantoin Monohydrate Mac (Macrobid) 100 Mg Cap, 100 MG PO BID for 7 Days, #14 CAP 0 Refills Prov:SOBEIDA ROTHMAN 07/16/24 Acetaminophen (Acetaminophen) 500 Mg Tab, 500 MG PO Q4HPRN, #30 TAB 0 Refills Prov:SOBEIDA ROTHMAN 07/16/24 Cephalexin Monohydrate (Cephalexin) 500 Mg Cap, 500 MG PO Q6HR for 7 Days, #28 CAP Prov:MARI CARMONA DO 05/25/24 Ciprofloxacin Hcl (Ciprofloxacin Hcl) 500 Mg Tab, 1 TAB PO BID for 7 Days, #14 TAB Prov:SARI HOWARD 01/12/24 Information Source: Patient Mode of Arrival: Ambulatory Past Medical History PAST MEDICAL HISTORY: DM, High Lipids, HTN, UTI'S Surgical History: Tubal Ligation RECEIVER STOCKER History: No Pertinent RECEIVER STOCKER History Family History Family History: Reviewed,noncontributory to illness, Family hx of DM Social History Smoker: Non-Smoker Alcohol: Denies ETOH Use Drugs: Denies Drug Use Lives In: Home Was a procedure done? Was a procedure done?: No GI differential Dx Differential Diagnosis: PID, Urinary Obstruction, UTI, Urolithiasis X-Ray, Labs, Meds, VS Vital Signs Date Time Temp Pulse Resp B/P (MAP) Pulse Ox O2 Delivery O2 Flow Rate FiO2 09/05/24 16:58 98.0 70 20 149/68 (95) 96 98.0 09/05/24 14:27 103 18 96 Room Air 09/05/24 14:27 98.4 103 18 113/66 (82) 96 98.4 09/05/24 10:49 98.8 86 18 129/79 (96) 96 98.8 Lab Test 09/05/24 15:15 09/05/24 11:52 09/05/24 11:30 Range/Units Lactic Acid Level 1.9 2.2 *H 0.4-2.0 mmol/L White Blood Count 6.9 4.4-10.8 10^3/uL Red Blood Count 4.52 4.0-5.20 10^6/uL Hemoglobin 14.4 12.2-16.2 g/dL Hematocrit 41.4 36.0-46.0 % Mean Corpuscular Volume 91.6 80.0-100.0 fL Mean Corpuscular Hemoglobin 31.9 28.0-32.0 pg Mean Corpuscular Hemoglobin Concent 34.8 32.0-36.0 g/dL Red Cell Distribution Width 12.7 11.8-14.3 % Platelet Count 171 140-450 10^3/uL Mean Platelet Volume 7.6 6.9-10.8 fL Neutrophils (%) (Auto) 47.7 37.0-80.0 % Lymphocytes (%) (Auto) 44.2 10.0-50.0 % Monocytes (%) (Auto) 6.2 0.0-12.0 % Eosinophils (%) (Auto) 1.4 0.0-7.0 % Basophils (%) (Auto) 0.5 0.0-2.0 % Neutrophils # (Auto) 3.3 1.6-8.6 10 ^3/uL Lymphocytes # (Auto) 3.0 0.4-5.4 10 ^3/uL Monocytes # (Auto) 0.4 0-1.3 10 ^3/uL Eosinophils # (Auto) 0.1 0-0.8 10 ^3/uL Basophils # (Auto) 0 0-0.2 10 ^3/uL Nucleated Red Blood Cells 0.0 % Sodium Level 142 136-145 mmol/L Potassium Level 3.9 3.5-5.1 mmol/L Chloride Level 105 98-107 mmol/L Carbon Dioxide Level 26 20-31 mmol/L Anion Gap 11 5-15 Blood Urea Nitrogen 9 9-23 mg/dL Creatinine 0.86 0.550-1.02 mg/dL Glomerular Filtration Rate Calc 79 >90 mL/min BUN/Creatinine Ratio 10.5 10.0-20.0 Serum Glucose 162 H 74-106 mg/dL Calcium Level 11.4 H 8.7-10.4 mg/dL Total Bilirubin 2.0 H 0.2-1.0 mg/dL Aspartate Amino Transferase (AST) 28 <34 U/L Alanine Aminotransferase (ALT) 25 7-40 U/L Alkaline Phosphatase 78 46-116 U/L Total Protein 7.6 5.7-8.2 g/dL Albumin 4.6 3.2-4.8 g/dL Urine Color Light-yellow Yellow Urine Clarity Clear Clear Urine pH 5.5 5.0-9.0 Urine Specific [place] 1.010 1.001-1.035 Urine Protein Negative Negative Urine Ketones Negative Negative Urine Blood Negative Negative /uL Urine Nitrite Negative Negative Urine Bilirubin Negative Negative Urine Urobilinogen Normal Negative mg/dL Urine Leukocyte Esterase Trace Negative /uL Urine RBC <1 0 - 4 /hpf Urine Microscopic WBC 3 0-5 /HPF Urine Squamous Epithelial Cells Few <5 /hpf Urine Bacteria None seen None Seen /hpf Urine Glucose 2+ H Normal mg/dL Current Medications Medications (Trade) Dose Ordered Sig/Monty Route Start Time Stop Time Status Last Admin Ceftriaxone Sodium 50 ml @ 100 mls/hr ONCE ONCE IV 09/05/24 13:30 09/05/24 13:59 DC 09/05/24 15:02 Sodium Chloride 1,000 ml @ 1,000 mls/hr Q1H ONCE IV 09/05/24 15:15 09/05/24 16:14 DC 09/05/24 16:40 Acetaminophen/ Hydrocodone Bitart ([place] 5/325MG Tab) 1 tab ONCE ONCE PO 09/05/24 18:00 09/05/24 18:01 DC 09/05/24 18:[address] [address] Ph: [phone] DIAGNOSTIC IMAGING Diagnostic Imaging Report : [id number] Signed PATIENT: MARII MOELLER ACCT: [id number] UNIT: [id number] : 1965 LOC: ER ROOM / BED: / AGE / SEX: 58 / F ADM STATUS: REG ER SERVICE 1322 ORDERING PHYSICIAN: MARI CARMONA DO PROCEDURE(s): ABPL - CT AB PEL WO CON-NO ORAL OR IV REASON: suprapubic pain, uti symptoms ORDER NUMBER(s): [id number], ACCESSION NUMBER(s): [id number] Exam: CT CT AB PEL WO CON-NO ORAL OR IV History: suprapubic pain, uti symptoms Comparison Study: CT CT AB PEL WO CON-NO ORAL OR IV on DOS: 05/25/24 Technique: Multidetector spiral CT of the abdomen was performed from lung bases to pubic symphysis. Imaging was performed without IV contrast. Axial, coronal and sagittal multiplanar reformats were obtained from the axial data set by the technologist. Radiation Dose : 1. Abdomen/Pelvis: CTDIvol 8.3 mGy, DLP 380 mGy*cm. Findings: Evaluation of solid organs is limited due to lack of intravenous contrast use. Lung Bases: No acute or significant lung base finding. Normal heart size. No pleural or pericardial effusion. Liver: Hypertrophic left hepatic lobe. No mass identified. Gallbladder and Biliary Tree: Unremarkable Spleen: Unremarkable Pancreas: The pancreas is grossly normal in appearance. Adrenal Glands: Unremarkable Kidneys: Status post right nephrectomy. Unremarkable left kidney. No left hydronephrosis Bladder: Grossly unremarkable for degree of distention. Bowel: The stomach is grossly normal in appearance. Minimal wall thickening of the distal colon may reflect underdistention versus mild colitis The appendix is not visualized; however, no secondary findings of acute appendicitis identified. Ascites: Absent Lymphadenopathy: No mesenteric, retroperitoneal or periportal lymphadenopathy. Abdominal Wall and Mesentery: Unremarkable. Vasculature: The visualized abdominal aorta is normal in size and caliber. Evaluation of abdominal and pelvic vessels is limited due to lack of intravenous contrast. Pelvic Organs: IUD in good position. Musculoskeletal: No aggressive focal bony lesions, acute fractures or dislocation. IMPRESSION: 1. Minimal wall thickening of the distal colon may reflect underdistention versus mild colitis. 2. Status post right nephrectomy. 3. Unremarkable left kidney. No hydronephrosis. Radiation optimization: All CT scans at this facility use at least one of these dose optimization techniques: automated exposure control mA and/or kV adjustment per patient size (includes targeted exams where dose is matched to clinical indication) or iterative reconstruction. ATED BY: KIERA MIR MD DICTATED DATE/TIME: 09/05/24 1404 SIGNED BY: KIERA MIR MD SIGNED DATE/TIME: 09/05/24 1404 CC: Time of 1ST Reevaluation: 14:00 Reevaluation 1ST: Unchanged Patient Education/Counseling: Diagnosis, Treatment Family Education/Counseling: No Family Present Comments Sepsis protocol was initiated with weight based fluid resuscitation. Patient is already on antibiotics so I did not obtain cultures. Patient presented with the above HPI.--urinary symptoms failed outpatient oral antibiotics----workup was initiated. patient was found with the above mentioned diagnosis. the following medications were ordered: please refer to order lists of meds and tests obtained by myself Dr. Carmona. Patient ED course and VS have been stabilized. Patient has been reassessed in the ED and remained in a stable condition. Pertinent incidental findings were discussed with the patient and/or family. Patient/family voices understanding and is agreeable with plan. Patient has been observed in the ED adequate length of time to insure improvement/stability. Escalation of care considered: Consideration of escalation to observation or admission CT scan suggests possible colitis. Patient has urinary symptoms of cystitis. The patient was started on antibiotics. Patient was ADMITTED to the medicine team for further evaluation and treatment of their presentation. All the reports of any imaging studies that were ordered by myself were reviewed by myself. Departure 1 Departure Time of Disposition: 15:04 Impression: Primary Impression: Sepsis secondary to UTI Additional Impression: Colitis Disposition: ADMITTED INPATIENT Admit to: Tele Condition: Guarded Discharged With: Self Critical Care Note Critical Care Time?: No I personally scribed for MARI CARMONA DO ([email or web address]) on 09/05/24 at 13:35. Electronically submitted by Mango Canela ([email or web address]). I personally scribed for MARI CARMONA DO ([email or web address]) on 09/05/24 at 14:16. Electronically submitted by Mango Canela ([email or web address]). MARI CARMONA DO Sep 05, 2024 13:35
--- NOTE | 2024-09-05 14:06 | DVH ---
Exam: CT CT AB PEL WO CON-NO ORAL OR IV History: suprapubic pain, uti symptoms Comparison Study: CT CT AB PEL WO CON-NO ORAL OR IV on DOS: 05/25/24 Technique: Multidetector spiral CT of the abdomen was performed from lung bases to pubic symphysis. Imaging was performed without IV contrast. Axial, coronal and sagittal multiplanar reformats were ob tained from the axial data set by the technologist. Radiation Dose : 1. Abdomen/Pelvis: CTDIvol 8.3 mGy, DLP 380 mGy*cm. Findings: Evaluation of solid organs is limited due to lack of intravenous contrast use. Lung Bases: No acute or significant lung base finding. Normal heart size. No pleural or pericardial effusion. Liver: Hypertrophic left hepatic lobe. No mass identified. Gallbladder and Biliary Tree: Unremarkable Spleen: Unremarkable Pancreas: The pancreas is grossly normal in appearance. Adrenal Glands: Unremarkable Kidneys: Status post right nephrectomy. Unremarkable left kidney. No left hydronephrosis Bladder: Grossly unremarkable for degree of distention. Bowel: The stomach is grossly normal in appearance. Minimal wall thickening of the distal colon may r eflect underdistention versus mild colitis The appendix is not visualized; however, no secondary fin dings of acute appendicitis identified. Ascites: Absent Lymphadenopathy: No mesenteric, retroperitoneal or periportal lymphadenopathy. Abdominal Wall and Mesentery: Unremarkable. Vasculature: The visualized abdominal aorta is normal in size and caliber. Evaluation of abdominal a nd pelvic vessels is limited due to lack of intravenous contrast. Pelvic Organs: IUD in good position. Musculoskeletal: No aggressive focal bony lesions, acute fractures or dislocation. IMPRESSION: 1. Minimal wall thickening of the distal colon may reflect underdistention versus mild colitis. 2. Status post right nephrectomy. 3. Unremarkable left kidney. No hydronephrosis. Radiation optimization: All CT scans at this facility use at least one of these dose optimization ila hniques: automated exposure control mA and/or kV adjustment per patient size (includes targeted exam s where dose is matched to clinical indication) or iterative reconstruction.
[2024-09-05] MEDS: cefTRIAXone 1GM/50ML D5W 50 ML IV ONE (15:02)
[2024-09-05] MEDS: SODIUM CHLORIDE 0.9% 1,000 ML IV ONE (16:40)
[2024-09-05] MEDS: HYDROcodone-ACET 5/325MG TAB PO ONE (18:28)
[2024-09-05] MEDS: metroNIDAZOLE 500MG/100ML 100 ML IV ONE (20:29)
[2024-09-05] MEDS ORDERED: DOCUSATE SOD 100 MG CAP PO PRN (21:45)
[2024-09-05] MEDS ORDERED: DEXTROSE (50%) 50ML SYRG IV PRN (21:45)
[2024-09-05] MEDS: metroNIDAZOLE 500MG/100ML 100 ML IV SCH (22:00)
[2024-09-05] MEDS: InsuLIN REG 1unit/0.01ml Soln (100units/ml) SC SCH (22:00)
[2024-09-05] MEDS: SODIUM CHLOR 0.9% PF (SALINE LOCK) 10ML VIAL/SYR IV SCH (22:21)
[2024-09-05] MEDS: ACCU-CHEK COMFORT CURVE STRIP VI SCH (22:25)
[2024-09-05] MEDS: ONDANSETRON HCL 4 MG/2 ML VIAL IV PRN (22:29)
--- NOTE | 2024-09-05 23:20 | DVHHP2 ---
History of Present Illness Reason for Visit: Colitis History of Present Illness The patient is a 58-year-old female with past medical history of kidney cancer, hypertension, diabetes mellitus, and hyperlipidemia who presented to [facility] ED with complaint of dysuria. Patient reports has been experiencing increasing urinary frequency, suprapubic discomfort, unrelieved by current antibiotics regimen, getting worse today that prompted this visit. Patient was seen and evaluated in the ED, laboratory data shows WBC 6.9, platelets 171, sodium 142, potassium 3.9, BUN nine, creatinine 0.86, glucose 168, calcium 11.4, lactic acid 2.2 trending down to 1.9, total bilirubin 2.0. Abdomen/pelvis CT revealing minimal wall thickening of the distal colon may reflect underdistention versus mild colitis, status post right nephrectomy, no hydronephrosis of the left kidney. Please see medication orders section in the computer. On my assessment, patient denied chest pain, no headache, no dizziness, no shortness of breath, no abdominal pain, no nausea, no vomiting, no fever, no chills. Patient was admitted for further evaluation and medical management. Past Medical History HTN, HLD, DM, Kidney Cancer Past Surgical History Right nephrectomy, Tubal Ligation Family History Reviewed, noncontributory to the management of this case. Past Social History The patient lives at home, denies smoking, alcohol or illicit drugs abuse. Review of Systems Constitutional: Yes: Weakness; No: Fever, Chills, Sweats, Malaise, Other Eyes: No: Pain, Vision change, Conjunctivae inflammation, Eyelid inflammation, Other, Redness ENT: No: Ear pain, Ear discharge, Nose pain, Nose discharge, Nose congestion, Mouth pain, Mouth swelling, Throat pain, Throat swelling, Other Respiratory: No: Cough, Dry, Shortness of breath, SOB with excertion, Wheezing, Hemoptysis, Pleuritic Pain, Sputum, Wheezing, Other Cardiovascular: No: Chest Pain, Palpitations, Orthopnea, Paroxysmal Noc. Dyspnea, Edema, Lt Headedness, Other Gastrointestinal: No: Nausea, Vomiting, Abdominal Pain, Diarrhea, Constipation, Melena, Hematochezia, Other Genitourinary: Dysuria, Frequency; No Incontinence, No Hematuria, No Retention; Other (Suprapubic discomfort) Musculoskeletal: No: other, neck pain, shoulder pain, arm pain, back pain, hand pain, leg pain, foot pain Skin: No: Rash, Lesions, Jaundice, Bruising, Other Neurological: No: Weakness, Numbness, Incoordination, Change in speech, Confusion, Seizures, Other Allergies: Coded Allergies: Ciprofloxacin (Verified Allergy, Unknown, 05/25/24) Uncoded Allergies: NOVACAINE (Allergy, Severe, 09/28/19) Medications Current Medications Medications Dose Ordered Sig/Monty Route Start Time Stop Time Status Last Admin Dose Admin Ceftriaxone Sodium 50 ml @ 100 mls/hr DAILY@09 IV 09/06/24 09:00 Metronidazole 100 ml @ 100 mls/hr Q8HR IV 09/05/24 22:00 Diagnostic Test (Pha) 1 strip ACHS 09/05/24 22:00 09/05/24 22:25 1 STRIP Insulin Human Regular ACHS SC 09/05/24 22:00 Dextrose 50 ml UD PRN IV 09/05/24 21:45 Sodium Chloride 10 ml Q8HR IV 09/05/24 22:00 09/05/24 22:21 10 ML Acetaminophen/ Hydrocodone Bitart 1 tab Q4HP PRN PO 09/05/24 21:45 Ondansetron HCl 4 mg Q4HP PRN IV 09/05/24 21:45 09/05/24 22:29 4 MG Docusate Sodium 100 mg BIDPRN PRN PO 09/05/24 21:45 Acetaminophen 500 mg Q6HP PRN PO 09/05/24 21:45 Exam Vital Signs Vital Signs Date Time Temp Pulse Resp B/P (MAP) Pulse Ox O2 Delivery O2 Flow Rate FiO2 09/05/24 22:23 98.3 74 16 120/57 (78) 97 98.3 09/05/24 20:42 Room Air General Appearance: Alert, Oriented X3, Cooperative, No acute distress HEENT: Atraumatic, PERRLA, EOMI, Mucous membr. moist/pink Respiratory: Normal air movement Cardiovascular: Regular rate, Normal S1, Normal S2, No murmurs Abdominal: Normal bowel sounds, Soft, No tenderness, No hepatospenomegaly, No masses Extremities: No clubbing, No cyanosis, No edema, Normal pulses, No tenderness/swelling Skin: No rashes, No breakdown, No significant lesion Neuro: Normal speech, Normal tone, Sensation intact, Cranial nerves 3-12 NL, Reflexes 2+, Other (Generalized weakness) Psych/Mental Status: Mental status NL, Mood NL Labs/Xrays Labs Test 09/05/24 22:25 09/05/24 15:15 09/05/24 11:52 09/05/24 11:30 Range/Units POC Glucose 152 H 70-106 mg/dl Lactic Acid Level 1.9 0.4-2.0 mmol/L White Blood Count 6.9 4.4-10.8 10^3/uL Red Blood Count 4.52 4.0-5.20 10^6/uL Hemoglobin 14.4 12.2-16.2 g/dL Hematocrit 41.4 36.0-46.0 % Mean Corpuscular Volume 91.6 80.0-100.0 fL Mean Corpuscular Hemoglobin 31.9 28.0-32.0 pg Mean Corpuscular Hemoglobin Concent 34.8 32.0-36.0 g/dL Red Cell Distribution Width 12.7 11.8-14.3 % Platelet Count 171 140-450 10^3/uL Mean Platelet Volume 7.6 6.9-10.8 fL Neutrophils (%) (Auto) 47.7 37.0-80.0 % Lymphocytes (%) (Auto) 44.2 10.0-50.0 % Monocytes (%) (Auto) 6.2 0.0-12.0 % Eosinophils (%) (Auto) 1.4 0.0-7.0 % Basophils (%) (Auto) 0.5 0.0-2.0 % Neutrophils # (Auto) 3.3 1.6-8.6 10 ^3/uL Lymphocytes # (Auto) 3.0 0.4-5.4 10 ^3/uL Monocytes # (Auto) 0.4 0-1.3 10 ^3/uL Eosinophils # (Auto) 0.1 0-0.8 10 ^3/uL Basophils # (Auto) 0 0-0.2 10 ^3/uL Nucleated Red Blood Cells 0.0 % Sodium Level 142 136-145 mmol/L Potassium Level 3.9 3.5-5.1 mmol/L Chloride Level 105 98-107 mmol/L Carbon Dioxide Level 26 20-31 mmol/L Anion Gap 11 5-15 Blood Urea Nitrogen 9 9-23 mg/dL Creatinine 0.86 0.550-1.02 mg/dL Glomerular Filtration Rate Calc 79 >90 mL/min BUN/Creatinine Ratio 10.5 10.0-20.0 Serum Glucose 162 H 74-106 mg/dL Calcium Level 11.4 H 8.7-10.4 mg/dL Total Bilirubin 2.0 H 0.2-1.0 mg/dL Aspartate Amino Transferase (AST) 28 <34 U/L Alanine Aminotransferase (ALT) 25 7-40 U/L Alkaline Phosphatase 78 46-116 U/L Total Protein 7.6 5.7-8.2 g/dL Albumin 4.6 3.2-4.8 g/dL Urine Color Light-yellow Yellow Urine Clarity Clear Clear Urine pH 5.5 5.0-9.0 Urine Specific [place] 1.010 1.001-1.035 Urine Protein Negative Negative Urine Ketones Negative Negative Urine Blood Negative Negative /uL Urine Nitrite Negative Negative Urine Bilirubin Negative Negative Urine Urobilinogen Normal Negative mg/dL Urine Leukocyte Esterase Trace Negative /uL Urine RBC <1 0 - 4 /hpf Urine Microscopic WBC 3 0-5 /HPF Urine Squamous Epithelial Cells Few <5 /hpf Urine Bacteria None seen None Seen /hpf Urine Glucose 2+ H Normal mg/dL PATIENT: MARII MOELLER MACCT: [id number] UNIT: [id number] : 1965 LOC: ER ROOM / BED: / AGE / SEX: 58 / F ADM STATUS: REG ER SERVICE 1322 ORDERING PHYSICIAN: MARI CARMONA DO PROCEDURE(s): ABPL - CT AB PEL WO CON-NO ORAL OR IV REASON: suprapubic pain, uti symptoms ORDER NUMBER(s): [id number], ACCESSION NUMBER(s): [id number] Exam: CT CT AB PEL WO CON-NO ORAL OR IV History: suprapubic pain, uti symptoms Comparison Study: CT CT AB PEL WO CON-NO ORAL OR IV on DOS: 05/25/24 Technique: Multidetector spiral CT of the abdomen was performed from lung bases to pubic symphysis. Imaging was performed without IV contrast. Axial, coronal and sagittal multiplanar reformats were obtained from the axial data set by the technologist. Radiation Dose: 1. Abdomen/Pelvis: CTDIvol 8.3 mGy, DLP 380 mGy*cm. Findings: Evaluation of solid organs is limited due to lack of intravenous contrast use. Lung Bases: No acute or significant lung base finding. Normal heart size. No pleural or pericardial effusion. Liver: Hypertrophic left hepatic lobe. No mass identified. Gallbladder and Biliary Tree: Unremarkable Spleen: Unremarkable Pancreas: The pancreas is grossly normal in appearance. Adrenal Glands: Unremarkable Kidneys: Status post right nephrectomy. Unremarkable left kidney. No left hydronephrosis Bladder: Grossly unremarkable for degree of distention. Bowel: The stomach is grossly normal in appearance. Minimal wall thickening of the distal colon may reflect underdistention versus mild colitis The appendix is not visualized; however, no secondary findings of acute appendicitis identified. Ascites: Absent Lymphadenopathy: No mesenteric, retroperitoneal or periportal lymphadenopathy. Abdominal Wall and Mesentery: Unremarkable. Vasculature: The visualized abdominal aorta is normal in size and caliber. Evaluation of abdominal and pelvic vessels is limited due to lack of intravenous contrast. Pelvic Organs: IUD in good position. Musculoskeletal: No aggressive focal bony lesions, acute fractures or dislocation. IMPRESSION: 1. Minimal wall thickening of the distal colon may reflect underdistention versus mild colitis. 2. Status post right nephrectomy. 3. Unremarkable left kidney. No hydronephrosis. Assessment/Plan Assessment/Plan Colitis Hypercalcemia Urinary frequency Acute abdominal pain Generalized weakness Plan 1. Admit to med surge unit 2. Breathing treatment 3. Pain control management 4. IV antibiotic management 5. Management of fluids and electrolytes 6. Consultation for hospitalist 7. Diagnostic test abdomen/pelvis CT 8. DVT prophylaxis-on SCDs 9. Repeat labs CBC, CMP in a.m. 10. Home medication reviewed and reconciled 11. Continue with current medical management 12. Treatment plan discussed with patient and RN. Patient verbalized understanding. Plan discussed with: Patient, Other (RN) My Orders Orders - ALIA LINDO DNP Procedure Category Date Status Time Ceftriaxone 1gm/50ml PHA 09/06/24 In Process D5w (Rocephin) 09:00 Metronidazole PHA 09/05/24 In Process 500mg/100ml (Flagyl 22:00 Consistent DIET 09/06/24 Transmitted Carb(Ccho)Diabetes Breakfast Glucose Blood PHA 09/05/24 In Process (Accu-Chek Comfort 22:00 Insulin R (Human) PHA 09/05/24 In Process (Insulin R) 22:00 Dextrose 50% Syringe PHA 09/05/24 In Process 21:45 Allergies JOEL 09/05/24 In Process 21:39 Code Status CODE 09/05/24 Transmitted 21:39 Sodium Chloride Lock PHA 09/05/24 In Process (Saline Lock Ns) 22:00 Oxygen Per Hour RT 09/05/24 Transmitted 21:39 Hydrocodone-Acet PHA 09/05/24 In Process 5/325mg Tab ([place] 21:45 Ondansetron Hcl PHA 09/05/24 In Process (Zofran) 21:45 Docusate Sodium PHA 09/05/24 In Process Capsule (Colace 21:45 Complete Blood Count LAB 09/06/24 Verified 04:00 Comprehensive LAB 09/06/24 Verified Metabolic Panel 04:00 Condition: Fair JOEL 09/05/24 In Process 21:39 Acetaminophen Tablet PHA 09/05/24 In Process (Tylenol Tablet) 21:45 Bedrest With Bathroom JOEL 09/05/24 In Process Privileg 21:39 Sequential JOEL 09/05/24 In Process Compression Device Problem List: (1) Colitis (2) Hypercalcemia (3) Urinary frequency (4) Acute abdominal pain (5) Generalized weakness Date of Service: Sep 05, 2024 Billing Provider: ALIA LINDO DNP Common Visit Codes: [id number] INP/OBS CARE (HIGH) ALIA LINDO DNP Sep 05, 2024 23:20
[2024-09-05] MEDS ORDERED: NITROGLYCERIN 0.4 MG SL TAB SL PRN (23:30)
[2024-09-05] MEDS ORDERED: MORPHINE SULFATE INJ 2 MG/ml SYRG IV PRN (23:30)
[2024-09-06] VITALS (7 sets, daily range): BP systolic 114–134; BP diastolic 60–92; PULSE 66–88; RESP 16–19; TEMP 97.9–98.5; O2SAT 96–99
[2024-09-06] MEDS ORDERED: METF-370 PO (06:08)
[2024-09-06 07:32] LABS: Basophils # (auto) 0 10 ^3/uL (0-0.2); Basophils % (auto) 0.8 % (0.0-2.0); Eosinophils # (auto) 0.1 10 ^3/uL (0-0.8); Eosinophils % (auto) 2.6 % (0.0-7.0); Hematocrit 38.9 % (36.0-46.0); Hemoglobin 13.4 g/dL (12.2-16.2); Lymphocytes # (auto) 1.6 10 ^3/uL (0.4-5.4); Lymphocytes % (auto) 36.5 % (10.0-50.0); Mean Corpuscular Hemoglobin 31.6 pg (28.0-32.0); Mean Corpuscular Hgb Conc. 34.4 g/dL (32.0-36.0); Mean Corpuscular Volume 91.9 fL (80.0-100.0); Monocytes # (auto) 0.3 10 ^3/uL (0-1.3); Monocytes % (auto) 6.7 % (0.0-12.0); Neutrophils # (auto) 2.3 10 ^3/uL (1.6-8.6); Neutrophils % (auto) 53.4 % (37.0-80.0); Platelet Count (auto) 147 10^3/uL (140-450); Red Blood Cells 4.23 10^6/uL (4.0-5.20); Red Cell Distribution Width 12.8 % (11.8-14.3); White Blood Cell 4.3 10^3/uL (4.4-10.8)
[2024-09-06 07:51] LABS: Alanine Aminotransferase 19 U/L (7-40); Alkaline Phosphatase 59 U/L (46-116); Anion Gap 7 (5-15); Aspartate Aminotransferase 25 U/L (<34); BUN/Creatinine Ratio 10.4 (10.0-20.0); Carbon Dioxide 27 mmol/L (20-31); Potassium 4.2 mmol/L (3.5-5.1); Total Protein 6.5 g/dL (5.7-8.2)
[2024-09-06 07:56] LABS: Blood Urea Nitrogen 8 mg/dL (9-23); Calcium 10.4 mg/dL (8.7-10.4); Chloride 111 mmol/L (98-107); Glucose 137 mg/dL (74-106); Sodium 145 mmol/L (136-145)
[2024-09-06 07:57] LABS: Bilirubin, Total 2.2 mg/dL (0.2-1.0)
[2024-09-06] MEDS: cefTRIAXone 1GM/50ML D5W 50 ML IV SCH (09:37)
[2024-09-06] MEDS: ACETAMINOPHEN 325 MG TAB PO PRN (11:27)
--- NOTE | 2024-09-06 14:13 | DVHPN2 ---
Subjective states was taking macrobid and had persistent dysuria and lower abdominal discomfort so came to er/no constipation/diarrhea/vaginal bleeding or discharge Changes from previous H/P or p: No Changes Eyes: No Pain, No Vision change, No Conjunctivae inflammation, No Eyelid inflammation, No Other, No Redness ENT: No Ear pain, No Ear discharge, No Nose pain, No Nose discharge, No Nose congestion, No Mouth pain, No Mouth swelling, No Throat pain, No Throat swelling, No Other Cardiovascular: No Chest Pain, No Palpitations, No Orthopnea, No Paroxysmal Noc. Dyspnea, No Edema, No Lt Headedness, No Other Respiratory: No Cough, No Dry, No Shortness of breath, No SOB with excertion, No Wheezing, No Hemoptysis, No Pleuritic Pain, No Sputum, No Other Gastrointestinal: No Nausea, No Vomiting, No Abdominal Pain, No Diarrhea, No Constipation, No Melena, No Hematochezia, No Other Genitourinary: Dysuria, Frequency; No Incontinence, No Hematuria, No Retention; Other (Suprapubic discomfort) Musculoskeletal: No other, No neck pain, No shoulder pain, No arm pain, No back pain, No hand pain, No leg pain, No foot pain Skin: No Rash, No Lesions, No Jaundice, No Bruising, No Other Objective Vitals Vital Signs Date Time Temp Pulse Resp B/P (MAP) Pulse Ox O2 Delivery O2 Flow Rate FiO2 09/06/24 09:00 97.9 82 17 114/63 (80) 96 97.9 09/06/24 07:55 Room Air* 0 21 Intake/Output Intake and Output 09/06/24 07:00 Intake Total 100 ml Output Total 0 ml Balance 100 ml Intake Oral 0 ml IV Total 100 ml Output Urine Total 0 ml General Appearance: Alert, Oriented X3, Cooperative, No acute distress Lungs: Clear to auscultation Cardiovascular: Regular rate, Normal S1, Normal S2 Abdomen: Normal bowel sounds, Soft, No tenderness, No hepatospenomegaly Musculoskeletal: Normal sensory function, Normal motor function Psych/Mental Status: Mental status NL, Mood NL Medications Current Medications Medications Dose Ordered Sig/Monty Route Start Time Stop Time Status Last Admin Dose Admin Ceftriaxone Sodium 50 ml @ 100 mls/hr DAILY@09 IV 09/06/24 09:00 09/06/24 09:37 100 MLS/HR Metronidazole 100 ml @ 100 mls/hr Q8HR IV 09/05/24 22:00 09/06/24 05:49 100 MLS/HR Diagnostic Test (Pha) 1 strip ACHS 09/05/24 22:00 09/06/24 11:26 1 STRIP Insulin Human Regular ACHS SC 09/05/24 22:00 09/06/24 11:33 4 UNITS Dextrose 50 ml UD PRN IV 09/05/24 21:45 Sodium Chloride 10 ml Q8HR IV 09/05/24 22:00 09/06/24 05:49 10 ML Acetaminophen/ Hydrocodone Bitart 1 tab Q4HP PRN PO 09/05/24 21:45 Docusate Sodium 100 mg BIDPRN PRN PO 09/05/24 21:45 Acetaminophen 500 mg Q6HP PRN PO 09/05/24 21:45 09/06/24 11:27 500 MG Laboratory Results Laboratory Tests 09/06/24 07:04 Chemistry Test 09/06/24 07:04 Albumin 4.0 g/dL (3.2-4.8) Calcium Level 10.4 mg/dL (8.7-10.4) Total Protein 6.5 g/dL (5.7-8.2) LFT Test 09/06/24 07:04 Alanine Aminotransferase (ALT) 19 U/L (7-40) Alkaline Phosphatase 59 U/L (46-116) Aspartate Amino Transferase (AST) 25 U/L (<34) Total Bilirubin 2.2 mg/dL (0.2-1.0) H Urinalysis Test 09/05/24 11:30 Urine Color Light-yellow (Yellow) Urine Clarity Clear (Clear) Urine pH 5.5 (5.0-9.0) Urine Specific [place] 1.010 (1.001-1.035) Urine Protein Negative (Negative) Urine Ketones Negative (Negative) Urine Blood Negative /uL (Negative) Urine Nitrite Negative (Negative) Urine Bilirubin Negative (Negative) Urine Urobilinogen Normal mg/dL (Negative) Urine Leukocyte Esterase Trace /uL (Negative) Urine RBC <1 /hpf (0 - 4) Urine Microscopic WBC 3 /HPF (0-5) Urine Squamous Epithelial Cells Few /hpf (<5) Urine Bacteria None seen /hpf (None Seen) Urine Glucose 2+ mg/dL (Normal) H Assessment/Plan Assessment/Plan resistant uti/pelvic pain- dd colitis- on levaquine/had normal colonoscopy 2022 h/o nephrectemy dm ambulatory status Plan discussed with: Patient My Orders Orders - DANDY MONROE MD Procedure Category Date Status Time Urine Bacterial JANI 09/06/24 Logged Culture 13:02 Date of Service: Sep 06, 2024 Billing Provider: DANDY MONROE MD Common Visit Codes: [id number] INP/OBS CARE(MOD) DANDY MONROE MD Sep 06, 2024 14:13
[2024-09-06] MEDS: HYDROcodone-ACET 5/325MG TAB PO PRN (21:45)
[2024-09-07] VITALS (8 sets, daily range): BP systolic 117–143; BP diastolic 58–79; PULSE 70–84; RESP 17–18; TEMP 97.8–98.3; O2SAT 96–98
[2024-09-08 01:00] VITALS: BP 133/74; PULSE 78; RESP 17; TEMP 98; O2SAT 98
[2024-09-08 05:00] VITALS: BP 120/72; PULSE 79; RESP 17; TEMP 98; O2SAT 97
[2024-09-08 08:00] VITALS: PULSE 74; RESP 18
[2024-09-08 08:30] VITALS: BP 132/72; PULSE 69; RESP 18; TEMP 98.1; O2SAT 99
--- NOTE | 2024-09-08 14:20 | DVHPN2 ---
Reviewed: Care Plan, H&P, Labs, Medications, Previous Orders, Radiology Changes from previous H/P or p: No Changes General: Per HPI Eyes: No Pain, No Vision change, No Conjunctivae inflammation, No Eyelid inflammation, No Other, No Redness ENT: No Ear pain, No Ear discharge, No Nose pain, No Nose discharge, No Nose congestion, No Mouth pain, No Mouth swelling, No Throat pain, No Throat swelling, No Other Cardiovascular: No Chest Pain, No Palpitations, No Orthopnea, No Paroxysmal Noc. Dyspnea, No Edema, No Lt Headedness, No Other Respiratory: No Cough, No Dry, No Shortness of breath, No SOB with excertion, No Wheezing, No Hemoptysis, No Pleuritic Pain, No Sputum, No Other Gastrointestinal: No Nausea, No Vomiting, No Abdominal Pain, No Diarrhea, No Constipation, No Melena, No Hematochezia, No Other Genitourinary: Dysuria, Frequency; No Incontinence, No Hematuria, No Retention; Other (Suprapubic discomfort) Musculoskeletal: No other, No neck pain, No shoulder pain, No arm pain, No back pain, No hand pain, No leg pain, No foot pain Skin: No Rash, No Lesions, No Jaundice, No Bruising, No Other Objective Vitals Vital Signs Date Time Temp Pulse Resp B/P (MAP) Pulse Ox O2 Delivery O2 Flow Rate FiO2 09/08/24 08:30 98.1 69 18 132/72 (92) 99 98.1 09/08/24 08:00 Room Air* 0 21 Intake/Output Intake and Output 09/08/24 07:00 Intake Total 980 ml Balance 980 ml Intake Oral 980 ml # Voids 9 # Bowel Movements 2 General Appearance: Alert, Oriented X3, Cooperative, No acute distress Lungs: Clear to auscultation Cardiovascular: Regular rate, Normal S1, Normal S2 Abdomen: Normal bowel sounds, Soft, No tenderness, No hepatospenomegaly Musculoskeletal: Normal sensory function, Normal motor function Psych/Mental Status: Mental status NL, Mood NL Medications Current Medications Medications Dose Ordered Sig/Monty Route Start Time Stop Time Status Last Admin Dose Admin Ceftriaxone Sodium 50 ml @ 100 mls/hr DAILY@09 IV 09/06/24 09:00 09/08/24 10:27 100 MLS/HR Metronidazole 100 ml @ 100 mls/hr Q8HR IV 09/05/24 22:00 09/08/24 06:02 100 MLS/HR Diagnostic Test (Pha) 1 strip ACHS 09/05/24 22:00 09/08/24 11:30 1 STRIP Insulin Human Regular ACHS SC 09/05/24 22:00 09/08/24 12:16 4 UNITS Dextrose 50 ml UD PRN IV 09/05/24 21:45 Sodium Chloride 10 ml Q8HR IV 09/05/24 22:00 09/08/24 06:04 10 ML Acetaminophen/ Hydrocodone Bitart 1 tab Q4HP PRN PO 09/05/24 21:45 09/07/24 18:58 1 TAB Docusate Sodium 100 mg BIDPRN PRN PO 09/05/24 21:45 Acetaminophen 500 mg Q6HP PRN PO 09/05/24 21:45 09/08/24 07:08 500 MG Laboratory Results Laboratory Tests 09/06/24 07:04 Urinalysis Test 09/05/24 11:30 Urine Color Light-yellow (Yellow) Urine Clarity Clear (Clear) Urine pH 5.5 (5.0-9.0) Urine Specific [place] 1.010 (1.001-1.035) Urine Protein Negative (Negative) Urine Ketones Negative (Negative) Urine Blood Negative /uL (Negative) Urine Nitrite Negative (Negative) Urine Bilirubin Negative (Negative) Urine Urobilinogen Normal mg/dL (Negative) Urine Leukocyte Esterase Trace /uL (Negative) Urine RBC <1 /hpf (0 - 4) Urine Microscopic WBC 3 /HPF (0-5) Urine Squamous Epithelial Cells Few /hpf (<5) Urine Bacteria None seen /hpf (None Seen) Urine Glucose 2+ mg/dL (Normal) H Microbiology Microbiology Date/Time Source Procedure Growth Status 09/06/24 14:23 Voided Urine Urine Culture - Final Complete Labs and/or images reviewed: Labs reviewed by me, Image(s) reviewed by me Assessment/Plan Assessment/Plan resistant uti pelvic pain- dd colitis- on levaquine/had normal colonoscopy 2022 h/o nephrectemy dm type 2 ambulatory status Plan discussed with: Patient Date of Service: Sep 07, 2024 Billing Provider: GERMÁN RASHID DO Common Visit Codes: [id number] INP/OBS CARE(HIGH) GERMÁN RASHID DO Sep 08, 2024 14:20
[2024-09-08] MEDS ORDERED: CEPH250C PO (14:21)
--- NOTE | 2024-09-08 14:22 | DVHDS2 ---
Discharge Summary Date of Admission Sep 05, 2024 at 23:17 Date of Discharge: Sep 08, 2024 Labs/Diagnostic Data: Laboratory Results Test 09/08/24 06:36 09/06/24 07:04 09/05/24 15:15 09/05/24 11:30 POC Glucose 155 mg/dl (70-106) White Blood Count 4.3 10^3/uL (4.4-10.8) Red Blood Count 4.23 10^6/uL (4.0-5.20) Hemoglobin 13.4 g/dL (12.2-16.2) Hematocrit 38.9 % (36.0-46.0) Mean Corpuscular Volume 91.9 fL (80.0-100.0) Mean Corpuscular Hemoglobin 31.6 pg (28.0-32.0) Mean Corpuscular Hemoglobin Concent 34.4 g/dL (32.0-36.0) Red Cell Distribution Width 12.8 % (11.8-14.3) Platelet Count 147 10^3/uL (140-450) Mean Platelet Volume 7.7 fL (6.9-10.8) Neutrophils (%) (Auto) 53.4 % (37.0-80.0) Lymphocytes (%) (Auto) 36.5 % (10.0-50.0) Monocytes (%) (Auto) 6.7 % (0.0-12.0) Eosinophils (%) (Auto) 2.6 % (0.0-7.0) Basophils (%) (Auto) 0.8 % (0.0-2.0) Neutrophils # (Auto) 2.3 10 ^3/uL (1.6-8.6) Lymphocytes # (Auto) 1.6 10 ^3/uL (0.4-5.4) Monocytes # (Auto) 0.3 10 ^3/uL (0-1.3) Eosinophils # (Auto) 0.1 10 ^3/uL (0-0.8) Basophils # (Auto) 0 10 ^3/uL (0-0.2) Nucleated Red Blood Cells 0.0 % Sodium Level 145 mmol/L (136-145) Potassium Level 4.2 mmol/L (3.5-5.1) Chloride Level 111 mmol/L (98-107) Carbon Dioxide Level 27 mmol/L (20-31) Anion Gap 7 (5-15) Blood Urea Nitrogen 8 mg/dL (9-23) Creatinine 0.77 mg/dL (0.550-1.02) Glomerular Filtration Rate Calc 90 mL/min (>90) BUN/Creatinine Ratio 10.4 (10.0-20.0) Serum Glucose 137 mg/dL (74-106) Calcium Level 10.4 mg/dL (8.7-10.4) Total Bilirubin 2.2 mg/dL (0.2-1.0) Aspartate Amino Transferase (AST) 25 U/L (<34) Alanine Aminotransferase (ALT) 19 U/L (7-40) Alkaline Phosphatase 59 U/L (46-116) Total Protein 6.5 g/dL (5.7-8.2) Albumin 4.0 g/dL (3.2-4.8) Lactic Acid Level 1.9 mmol/L (0.4-2.0) Urine Color Light-yellow (Yellow) Urine Clarity Clear (Clear) Urine pH 5.5 (5.0-9.0) Urine Specific [place] 1.010 (1.001-1.035) Urine Protein Negative (Negative) Urine Ketones Negative (Negative) Urine Blood Negative /uL (Negative) Urine Nitrite Negative (Negative) Urine Bilirubin Negative (Negative) Urine Urobilinogen Normal mg/dL (Negative) Urine Leukocyte Esterase Trace /uL (Negative) Urine RBC <1 /hpf (0 - 4) Urine Microscopic WBC 3 /HPF (0-5) Urine Squamous Epithelial Cells Few /hpf (<5) Urine Bacteria None seen /hpf (None Seen) Urine Glucose 2+ mg/dL (Normal) Other Laboratory Tests 09/06/24 07:04 Brief Hx & Hospital Course: resistant uti pelvic pain- dd colitis- on levaquine/had normal colonoscopy 2022 h/o nephrectemy dm type 2 ambulatory status discharged to home Condition at Discharge: Fair Final Diagnosis/Problems List see abve Discharge Disposition: Home Discharge Instruct/Medications Diet: Cardiac 2g Na,low cholest Activity: No Restrictions, As Tolerated Discharge Statement: "Patient was advised to return to the ER or call 911 if any headaches, dizziness, shortness of breath, chest pain, abdominal pain, bleeding, fevers, or worsening of medical condition. Patient was counseled about treatment plan, medications, possible side effects, patientverbalized understanding. All questions were answered to the best of my ability. This discharge took greater then 30 minutes in planning, reviewing documentation, counseling the patient, and discussing with other team members." ASSESSMENT ASSESSMENT Assessment Date of Service: Sep 08, 2024 Billing Provider: GERMÁN RASHID DO Common Visit Codes: [id number] DISCH DAY >30min GERMÁN RASHID DO Sep 08, 2024 14:22
[2024-09-08 16:30] VITALS: BP 144/79; PULSE 82; RESP 19; TEMP 98.4; O2SAT 98
== END 2024-09-08 18:55 | disposition home or self-care (01) | DRG 463 ==
LOC: ER 10:37 → OVERFLOW 23:17 → WEST WING 09-06 02:22
PROVIDERS: ADMIT Internal Medicine; ATTEND Internal Medicine
DX: N39.0 Urinary tract infection, site not specified (principal); A09 Infectious gastroenteritis and colitis, unspecified; E11.9 Type 2 diabetes mellitus without complications; E83.52 Hypercalcemia; E78.5 Hyperlipidemia, unspecified; I10 Essential (primary) hypertension; Z85.528 Personal history of other malignant neoplasm of kidney; Z88.1 Allergy status to other antibiotic agents; Z90.5 Acquired absence of kidney; Z98.51 Tubal ligation status
CPT/HCPCS: 36415; 74176; 80053; 81001; 82962; 83605; 85025; 87086; 96365; 96367; G0378; J1815; J2405; J3490

== ENCOUNTER 2024-10-21 08:48 | Emergency (ER) | payer MEDICAID ==
[~2024-10-21] VITALS: Ht 157.5 cm; Wt 55.0 kg
[~2024-10-21 08:48] MED LIST changes: -CEFP200T15 PO; +CEPH250C PO; -CEPH500C PO; -CIPR500T4 PO; -LEVO500T91 PO; +METF-370 PO; -NITR-87 PO
--- NOTE | 2024-10-21 09:10 | ED.PDOC ---
General HPI Comments THIS IS A 59 YEAR OLD FEMALE PRESENTING TO THE ED WITH CHIEF COMPLAINT OF URINARY SYMPTOMS. PATIENT REPORTS THAT SHE HAS BEEN EXPERIENCING DYSURIA WITH ASSOCIATED URINARY FREQUENCY AND PRESSURE FOR THE PAST 3 DAYS. PATIENT BELIEVES THAT SHE HAS A UTI AT THIS TIME. PATIENT DENIES ANY FEVER, CHILLS, DIZZINESS, NAUSEA, VOMITING, ABDOMINAL PAIN, OR FLANK PAIN. NO OTHER SYMPTOMS REPORTED AT THIS TIME OF CARE. Chief Complaint: Urinary Time Seen by MD: 09:07 Primary Care Provider: MANUELITO Rios notes: Nurses Notes, Medications, Allergies Allergies: Coded Allergies: Ciprofloxacin (Verified Allergy, Unknown, 05/25/24) Uncoded Allergies: NOVACAINE (Allergy, Severe, 09/28/19) Home Meds Active Scripts Phenazopyridine HCl (Phenazopyridine Hydrochlo) 200 Mg Tab, 200 MG PO TID, #6 TAB Prov:TOLU OAKES 10/21/24 Sulfamethoxazole W/Trimethopri (Bactrim Ds Tablet) 1 Tab Tb, 1 TAB PO BID for 7 Days, #14 TAB Prov:TOLU OAKES 10/21/24 Cephalexin (KEFLEX CAPSULE) 250 Mg Cp, 2 CAP PO BID for 5 Days, #20 CAP Prov:GERMÁN RASHID DO 09/08/24 Promethazine-Dm (Promethazine Dm 6.25-15 mg/5Ml) 1 Karine Karine, 5 ML PO TID for 10 Days, #150 ML 0 Refills Prov:ADAM VINES COLOR CHECKER 08/13/24 Benzonatate (Benzonatate) 100 Mg Cap, 1 CAP PO TID for 10 Days, #30 CAP 0 Refills Prov:ADAM VINES COLOR CHECKER 08/13/24 Acetaminophen (Acetaminophen) 500 Mg Tab, 500 MG PO Q4HPRN, #30 TAB 0 Refills Prov:SOBEIDA ROTHMAN 07/16/24 Reported Medications Metformin Hydrochloride (Metformin Hcl) 500 Mg Tab, 1 TAB PO BID 09/06/24 Information Source: Patient Mode of Arrival: Ambulatory Severity: Moderate Timing: Days Duration: Since onset Prehospital treatment: None Onset: Spontaneous Symptoms: Dysuria, Frequency History of: UTI Location: None Modifying factors: None associated signs and symptoms: Dysuria, Frequency, Urgency Past Medical History PAST MEDICAL HISTORY: DM, High Lipids, HTN, UTI'S Surgical History: Tubal Ligation 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 Pertinent SPRING REPAIRER HELPER HAND History Family History Family History: Reviewed,noncontributory to illness, Family hx of DM Social History Smoker: Non-Smoker Alcohol: Denies ETOH Use Drugs: Denies Drug Use Lives In: Home Constitutional: denies: chills, diaphoresis, fatigue, fever, malaise, sweats, weakness, others EENTM: denies: blurred vision, double vision, ear bleeding, ear discharge, ear drainage, ear pain, ear ringing, eye pain, eye redness, hearing loss, mouth pain, mouth swelling, nasal discharge, nose bleeding, nose congestion, nose pain, photophobia, tearing, throat pain, throat swelling, voice changes, others Respiratory: denies: cough, hemoptysis, orthopnea, SOB at rest, shortness of breath, SOB with excertion, stridor, wheezing, others Cardiovascular: denies: chest pain, dizzy spells, diaphoresis, Dyspnea on exertion, edema, irregular heart beat, left arm pain, lightheadedness, palpitations, PND, syncope, others Gastrointestinal: denies: abdomen distended, abdominal pain, blood streaked bowels, constipated, diarrhea, dysphagia, difficulty swallowing, hematemesis, melena, nausea, poor appetite, poor fluid intake, rectal bleeding, rectal pain, vomiting, others Genitourinary: reports: burning, dysuria, frequency; denies: abnormal vagina bleeding, dyspareunia, flank pain, hematuria, incontinence, pain, , vagina discharge, urgency, others Neurological: denies: dizziness, fainting, headache, left sided numbness, left sided weakness, numbness, paresthesia, pre-existing deficit, right sided numbness, right sided weakness, seizure, speech problems, tingling, tremors, weakness, others Musculoskeletal: denies: back pain, gout, joint pain, joint swelling, muscle pain, muscle stiffness, neck pain, others Integumetry: denies: bruises, change in color, change in hair/nails, dryness, laceration, lesions, lumps, rash, wounds, others Allergic/Immunocompromised: denies: Difficulty Healing, Frequent Infections, Hives, Itching, others Hematologic/Lymphatic: denies: anemia, blood clots, easy bleeding, easy bruisi ng, swollen glands, others Endocrine: denies: excessive hunger, excessive sweating, excessive thirst, exce ssive urination, flushing, intolerance to cold, intolerance to heat, unexplained weight gain, unexplained weight loss, others Psychiatric: denies: anxiety, bipolar disorder, depression, hopeless, panic disorder, schizophrenia, sleepless, suicidal, others All Other Systems: Reviewed and Negative Physical Exam General Appearance: No Apparent Distress, Normal HEENT: Normal ENT Inspection, PERRL/EOMI, Pharynx Normal, TMs Normal Neck: Full Range of Motion, Non-Tender, Normal, Normal Inspection Respiratory: Chest Non-Tender, Lungs Clear, No Accessory Muscle Use, No Respiratory Distress, Normal Breath Sounds Cardiovascular: No Edema, No JVD, No Murmur, No Gallop, Normal Peripheral Pulses, Regular Rate/Rhythm Breast Exam: Deferred Gastrointestinal: No Organomegaly, Non Tender, No Pulsatile Mass, Normal Bowel Sounds, Soft, Suprapubic (PRESSURE ) Genitalia: Deferred Pelvic: Normal External Exam, Tender Uterus Rectal: Deferred Extremities: No calf tenderness, Normal capillary refill, Normal inspection, Normal range of motion, Non-tender, No pedal edema Musculoskeletal : Apperance: Normal Neurologic: Alert, sap data analyst II-XII nml as Tested, No Motor Deficits, Normal Affect, Normal Mood, No Sensory Deficits Cerebellar Function: Normal Reflexes: Normal Skin: Dry, Normal Color, Warm Peripheral Pulses: 2+ carotid (R), 2+ carotid (L) Lymphatic: No Adenopathy Was a procedure done? Was a procedure done?: No Differential Diagnosis Kidney stone (Female): N/A Kidney stone (Male): N/A Penile/Scrotal: N/A Urinary Problem (Male): N/A Urinary Problem (Female): Pyelonephritis, Urolithiasis, UTI X-Ray, Labs, Meds, VS Vital Signs Date Time Temp Pulse Resp B/P (MAP) Pulse Ox O2 Delivery O2 Flow Rate FiO2 10/21/24 10:12 98.4 81 15 109/66 (80) 98 98.4 10/21/24 08:49 98.2 94 15 148/81 96 98.2 Lab Test 10/21/24 09:01 Range/Units Urine Color Light-yellow Yellow Urine Clarity Clear Clear Urine pH 5.5 5.0-9.0 Urine Specific [place] 1.021 1.001-1.035 Urine Protein Negative Negative Urine Ketones Negative Negative Urine Blood Trace H Negative /uL Urine Nitrite Negative Negative Urine Bilirubin Negative Negative Urine Urobilinogen 2 H Negative mg/dL Urine Leukocyte Esterase 3+ Negative /uL Urine RBC 8 0 - 4 /hpf Urine Microscopic WBC 34 H 0-5 /HPF Urine Squamous Epithelial Cells Few <5 /hpf Urine Bacteria None seen None Seen /hpf Urine Glucose 2+ H Normal mg/dL X-Ray, Labs, Meds, VS Comment EXTERNAL MEDICAL RECORDS REVIEWED: [NONE] INDEPENDENT HISTORIANS: [NONE] SOCIAL DETERMINANTS OF HEALTH: [NONE] LABS ORDERED: UA, ACCUCHECK: 153 REVIEWED AND INTERPRETED RESULTS: POSITIVE UTI IMAGING ORDERED: NONE TREATMENTS ORDERED: NONE PROCEDURES PERFORMED: NONE CRITICAL CARE TIME: NONE I HAVE DISCUSSED THE PATIENT WITH THE ATTENDING PHYSICIAN DR. CALDERA AND HE AGREES WITH THE PATIENT'S PLAN OF CARE AND DISPOSITION. BASED ON HISTORY OF PRESENT ILLNESS, AND PHYSICAL EXAM, PATIENT WILL BE DISCHARGED HOME. DISCUSSED PLAN FOR DISCHARGE HOME WITH RX [SEPTRA DS AND PYRIDIUM]. MEDICATION WARNINGS GIVEN. SHARED DECISION MAKING: DISCUSSED WITH PATIENT THAT THEIR WORKUP WAS NORMAL. PATIENT INSTRUCTED TO FOLLOW UP WITH PRIMARY CARE PROVIDER IN 1-2 DAYS FOR RE-EV ALUATION OF SYMPTOMS. PATIENT VERBALIZES UNDERSTANDING TO RETURN TO ED FOR NEW OR WORSENING SYMPTOMS OR IF FOLLOW UP WITH PCP CANNOT BE OBTAINED. PATIENT FEELS COMFORTABLE GOING HOME AT THIS TIME. ALL QUESTIONS ADDRESSED AT TIME OF DISCHARGE. Time of 1ST Reevaluation: 09:37 Reevaluation 1ST: Improved Patient Education/Counseling: Diagnosis, Treatment, Need For Follow Up Family Education/Counseling: Diagnosis, Treatment, No Family Present Medical Screening: No EMC Exist At This Time SEPSIS Sepsis Screen Date sepsis recognized/suspect: Oct 21, 2024 Time Sepsis recognized/suspect: 0851 Recent Procedure: No On Antibiotic Therapy: No Respiratory Rate >20: No Heart Rate >90: No Temp<36 C (96.8 F) or >38.3 C: No SBP <90 or MAP <65 mmHG: No New Acute Mental Status Change: No Is the patient on CPAP, BIPAP,: No Physician Orders Accucheck (10/21/24 10:08) Vital Signs Date Time Temp Pulse Resp B/P (MAP) Pulse Ox O2 Delivery O2 Flow Rate FiO2 10/21/24 10:12 98.4 81 15 109/66 (80) 98 98.4 8/6/25 08:49 98.2 94 15 148/81 96 98.2 Departure 1 Departure Time of Disposition: 10:12 Impression: Primary Impression: UTI (urinary tract infection) Qualified Codes: N30.00 - Acute cystitis without hematuria Disposition: HOME / SELF CARE / HOMELESS Condition: Stable Additional Instructions: FOLLOW-UP WITH PCP IN 1 TO 2 DAYS. TAKE MEDICATIONS PRESCRIBED. RETURN TO ED FOR ANY NEW OR WORSENING SYMPTOMS. e-Prescriptions Phenazopyridine HCl (Phenazopyridine Hydrochlo) 200 Mg Tab 200 MG PO TID, #6 TAB Prov: TOLU OAKES 10/21/24 Sulfamethoxazole W/Trimethopri (Bactrim Ds Tablet) 1 Tab Tb 1 TAB PO BID for 7 Days, #14 TAB Prov: TOLU OAKES 10/21/24 Discharged With: Self Critical Care Note Critical Care Time?: No Stability Stability form required: No Heart Score Heart Score: Heart Score Response (Comments) Value History N/A 0 EKG N/A 0 Age N/A 0 Risk Factors N/A 0 Troponin N/A 0 Total 0 I personally scribed for TOLU OAKES ([email or web address]) on 10/21/24 at 09:10. Electronically submitted by Sylvester Diane ([email or web address]). I personally scribed for TOLU OAKES ([email or web address]) on 10/21/24 at 10:12. Electronically submitted by Sylvester Diane ([email or web address]). TOLU OAKES Oct 21, 2024 09:10
[2024-10-21 09:44] LABS: Urine Protein, UAD Negative (Negative)
[2024-10-21 10:12] VITALS: BP 109/66; PULSE 81; RESP 15; TEMP 98.4; O2SAT 98
[2024-10-21] MEDS ORDERED: PHEN-922 PO (10:12)
[2024-10-21] MEDS ORDERED: BACDST PO (10:12)
== END 2024-10-21 10:15 | disposition home or self-care (01) ==
LOC: ER 08:48
DX: N39.0 Urinary tract infection, site not specified (principal); I10 Essential (primary) hypertension; E11.9 Type 2 diabetes mellitus without complications; E78.5 Hyperlipidemia, unspecified; Z79.84 Long term (current) use of oral hypoglycemic drugs; Z87.440 Personal history of urinary (tract) infections; Z98.51 Tubal ligation status; Z98.890 Other specified postprocedural states; Z88.1 Allergy status to other antibiotic agents
CPT/HCPCS: 81001; 82947

== ENCOUNTER 2024-11-27 18:57 | Emergency (ER) | payer MEDICAID ==
[~2024-11-27] VITALS: Ht 157.5 cm; Wt 57.5 kg
[~2024-11-27 18:57] MED LIST changes: +BACDST PO; +PHEN-922 PO
[2024-11-27 19:00] VITALS: BP 128/68; PULSE 90; RESP 13; TEMP 98.2; O2SAT 98
--- NOTE | 2024-11-27 19:33 | ED.PDOC ---
General HPI Comments This is a 59 year old female presenting to the ED with chief complaint of urinary symptoms. Patient reports that she has been experiencing urinary frequency with associated headache, urgency, and pelvic pressure for the past 2 days. Patient denies any dysuria, hematuria, flank pain, or N/V/D. Chief Complaint: Urinary Time Seen by MD: 19:31 Primary Care Provider: MANUELITO Rios notes: Nurses Notes, Medications, Allergies Allergies: Coded Allergies: Ciprofloxacin (Verified Allergy, Unknown, 05/25/24) Uncoded Allergies: NOVACAINE (Allergy, Severe, 09/28/19) Home Meds Active Scripts Sulfamethoxazole W/Trimethopri (Bactrim Ds Tablet) 1 Tab Tb, 1 TAB PO BID for 7 Days, #14 TAB Prov:SARI HOWARD 11/27/24 Phenazopyridine HCl (Phenazopyridine Hydrochlo) 200 Mg Tab, 200 MG PO TID, #6 TAB Prov:TOLU OAKES 10/21/24 Sulfamethoxazole W/Trimethopri (Bactrim Ds Tablet) 1 Tab Tb, 1 TAB PO BID for 7 Days, #14 TAB Prov:TOLU OAKES 10/21/24 Cephalexin (KEFLEX CAPSULE) 250 Mg Cp, 2 CAP PO BID for 5 Days, #20 CAP Prov:GERMÁN RASHID DO 09/08/24 Promethazine-Dm (Promethazine Dm 6.25-15 mg/5Ml) 1 Karine Karine, 5 ML PO TID for 10 Days, #150 ML 0 Refills Prov:ADAM VINES NP 08/13/24 Benzonatate (Benzonatate) 100 Mg Cap, 1 CAP PO TID for 10 Days, #30 CAP 0 Refills Prov:ADAM VINES NP 08/13/24 Acetaminophen (Acetaminophen) 500 Mg Tab, 500 MG PO Q4HPRN, #30 TAB 0 Refills Prov:SOBEIDA ROTHMAN 07/16/24 Reported Medications Metformin Hydrochloride (Metformin Hcl) 500 Mg Tab, 1 TAB PO BID 09/06/24 Information Source: Patient Mode of Arrival: Ambulatory Severity: Moderate Timing: Days Duration: Since onset Prehospital treatment: None Onset: Spontaneous Symptoms: Frequency, Urgency History of: UTI Location: Suprapubic associated signs and symptoms: Abdominal Pain, Frequency, Urgency Past Medical History PAST MEDICAL HISTORY: DM, High Lipids, HTN, UTI'S Surgical History: Tubal Ligation MANAGER EQUIPMENT History: No Pertinent MANAGER EQUIPMENT History Family History Family History: Reviewed,noncontributory to illness, Family hx of DM Social History Smoker: Non-Smoker Alcohol: Denies ETOH Use Drugs: Denies Drug Use Lives In: Home Constitutional: denies: chills, diaphoresis, fatigue, fever, malaise, sweats, weakness, others EENTM: denies: blurred vision, double vision, ear bleeding, ear discharge, ear drainage, ear pain, ear ringing, eye pain, eye redness, hearing loss, mouth pain, mouth swelling, nasal discharge, nose bleeding, nose congestion, nose pain, photophobia, tearing, throat pain, throat swelling, voice changes, others Respiratory: denies: cough, hemoptysis, orthopnea, SOB at rest, shortness of breath, SOB with excertion, stridor, wheezing, others Cardiovascular: denies: chest pain, dizzy spells, diaphoresis, Dyspnea on exertion, edema, irregular heart beat, left arm pain, lightheadedness, palpitations, PND, syncope, others Gastrointestinal: denies: abdomen distended, abdominal pain, blood streaked bowels, constipated, diarrhea, dysphagia, difficulty swallowing, hematemesis, melena, nausea, poor appetite, poor fluid intake, rectal bleeding, rectal pain, vomiting, others Genitourinary: reports: frequency, urgency, others (Pelvic pressure); denies: abnormal vagina bleeding, burning, dyspareunia, dysuria, flank pain, hematuria, incontinence, pain, , vagina discharge Neurological: reports: headache; denies: dizziness, fainting, left sided numbness, left sided weakness, numbness, paresthesia, pre-existing deficit, right sided numbness, right sided weakness, seizure, speech problems, tingling, tremors, weakness, others Musculoskeletal: denies: back pain, gout, joint pain, joint swelling, muscle pain, muscle stiffness, neck pain, others Integumetry: denies: bruises, change in color, change in hair/nails, dryness, laceration, lesions, lumps, rash, wounds, others Allergic/Immunocompromised: denies: Difficulty Healing, Frequent Infections, Hives, Itching, others Hematologic/Lymphatic: denies: anemia, blood clots, easy bleeding, easy b ruising, swollen glands, others Endocrine: denies: excessive hunger, excessive sweating, excessive thirst, excessive urination, flushing, intolerance to cold, intolerance to heat, unexplained weight gain, unexplained weight loss, others Psychiatric: denies: anxiety, bipolar disorder, depression, hopeless, panic disorder, schizophrenia, sleepless, suicidal, others All Other Systems: Reviewed and Negative Physical Exam General Appearance: No Apparent Distress, Normal HEENT: Pharynx Normal Neck: Full Range of Motion, Non-Tender Respiratory: Lungs Clear, No Respiratory Distress, Normal Breath Sounds Cardiovascular: No Edema, No JVD, No Murmur, No Gallop, Normal Peripheral Pulses, Regular Rate/Rhythm Breast Exam: Deferred Gastrointestinal: No Organomegaly, Non Tender, No Pulsatile Mass, Normal Bowel Sounds, Soft, Other (Negative CVA tenderness) Genitalia: Deferred Pelvic: Deferred Rectal: Deferred Extremities: No calf tenderness, Normal capillary refill, Normal inspection, Normal range of motion, Non-tender, No pedal edema Musculoskeletal : Apperance: Normal Neurologic: Alert, No Motor Deficits, Normal Affect, Normal Mood, No Sensory Deficits Cerebellar Function: Normal Reflexes: NOT DONE Skin: Dry, Normal Color, Warm Lymphatic: No Adenopathy Was a procedure done? Was a procedure done?: No Differential Diagnosis Kidney stone (Female): N/A Kidney stone (Male): N/A Penile/Scrotal: N/A Urinary Problem (Male): N/A Urinary Problem (Female): UTI X-Ray, Labs, Meds, VS Vital Signs Date Time Temp Pulse Resp B/P (MAP) Pulse Ox O2 Delivery O2 Flow Rate FiO2 11/27/24 19:00 98.2 90 13 128/68 98 98.2 Lab Test 11/27/24 20:34 Range/Units Urine Color Light-yellow Yellow Urine Clarity Clear Clear Urine pH 5.5 5.0-9.0 Urine Specific [place] 1.008 1.001-1.035 Urine Protein Negative Negative Urine Ketones Negative Negative Urine Blood Trace H Negative /uL Urine Nitrite Negative Negative Urine Bilirubin Negative Negative Urine Urobilinogen Normal Negative mg/dL Urine Leukocyte Esterase 3+ Negative /uL Urine RBC 1 0 - 4 /hpf Urine Microscopic WBC 22 H 0-5 /HPF Urine Squamous Epithelial Cells Few <5 /hpf Urine Bacteria Few H None Seen /hpf Urine Glucose 4+ H Normal mg/dL X-Ray, Labs, Meds, VS Comment UA positive for infection. Patient given Rocephin 1 g IM. Script trial of Bactrim advised take medication as prescribed side effects discussed. Advised to rest increase p.o. fluids with electrolytes. Monitor your glucose closely. Follow up with your PCP in 2-3 days consider repeat urine culture if symptoms persist. [id number] Tylenol or Motrin as needed for pain or fever. ER return precautions given patient indicates understanding and agrees with discharge plan of care. Time of 1ST Reevaluation: 21:30 Reevaluation 1ST: Unchanged Time of 2ND Reevaluation: 21:15 Reevaluation 2ND: Improved Patient Education/Counseling: Diagnosis, Treatment Family Education/Counseling: No Family Present SEPSIS Sepsis Screen Date sepsis recognized/suspect: Nov 27, 2024 Time Sepsis recognized/suspect: 1899 Recent Procedure: No On Antibiotic Therapy: No Respiratory Rate >20: No Heart Rate >90: No Temp<36 C (96.8 F) or >38.3 C: No SBP <90 or MAP <65 mmHG: No New Acute Mental Status Change: No Is the patient on CPAP, BIPAP,: No Vital Signs Date Time Temp Pulse Resp B/P (MAP) Pulse Ox O2 Delivery O2 Flow Rate FiO2 11/27/24 19:00 98.2 90 13 128/68 98 98.2 Departure 1 Departure Time of Disposition: 21:19 Impression: Primary Impression: UTI (urinary tract infection) Qualified Codes: N30.01 - Acute cystitis with hematuria Disposition: HOME / SELF CARE / HOMELESS Condition: Stable e-Prescriptions Sulfamethoxazole W/Trimethopri (Bactrim Ds Tablet) 1 Tab Tb 1 TAB PO BID for 7 Days, #14 TAB Prov: SARI HOWARD 11/27/24 Discharged With: Self Critical Care Note Critical Care Time?: No Stability Stability form required: No Heart Score Heart Score: Heart Score Response (Comments) Value History N/A 0 EKG N/A 0 Age N/A 0 Risk Factors N/A 0 Troponin N/A 0 Total 0 I personally scribed for ER ([email or web address]) on 11/27/24 at 19:33. Electronically submitted by Sylvester Diane [email or web address]). ER Nov 27, 2024 19:33 SARI HOWARD [facility] Nov 27, 2024 21:21
[2024-11-27 20:58] LABS: Urine Protein, UAD Negative (Negative)
[2024-11-27] MEDS ORDERED: BACDST PO (21:21)
[2024-11-27] MEDS ORDERED: cefTRIAXone SOD 1,000 MG VL IM ONE (21:30)
== END 2024-11-27 23:07 | disposition home or self-care (01) ==
LOC: ER 19:00
DX: N39.0 Urinary tract infection, site not specified (principal); E11.9 Type 2 diabetes mellitus without complications; I10 Essential (primary) hypertension; Z98.51 Tubal ligation status; Z88.1 Allergy status to other antibiotic agents
CPT/HCPCS: 81001